=== PATIENT | male | born 1955 | race Caucasian/White ===

== ENCOUNTER 2018-07-31 22:45 | Inpatient (IN) | payer OTHER ==
[~2018-07-31] VITALS: Ht 172.7 cm; Wt 78.8 kg
[2018-07-31 23:00] VITALS: BP 123/75
[2018-08-01] VITALS: BP 107/78
[2018-08-01] MEDS ORDERED: ASPIRIN81 M2 PO (01:00)
[2018-08-01] MEDS ORDERED: LIPITOR40 MG PO (01:00)
[2018-08-01] MEDS ORDERED: WELLBUTRIN 100100 MG PO (01:02)
[2018-08-01] MEDS ORDERED: PLAVIX 75 MG TA75 M1 PO (01:03)
[2018-08-01] MEDS ORDERED: DIGOXIN125 MCG PO (01:05)
[2018-08-01] MEDS ORDERED: PEPCID20 MG PO (01:07)
[2018-08-01] MEDS ORDERED: COLACE100 MG PO (01:07)
[2018-08-01] MEDS ORDERED: FENOFIBRATE160 MG PO (01:09)
[2018-08-01] MEDS ORDERED: PROSCAR 5MG TABL5 MG PO (01:11)
[2018-08-01] MEDS ORDERED: PROZAC20 MG PO (01:20)
[2018-08-01] MEDS ORDERED: LASIX 40 MG TAB40 M2 PO (01:21)
[2018-08-01] MEDS ORDERED: KAPSPARGO SPRIN25 MG PO (01:22)
[2018-08-01] MEDS ORDERED: NITROGLYCERIN0.4 MG SUBLING (01:24)
[2018-08-01] MEDS ORDERED: POTASSIUM20 PO (01:25)
[2018-08-01] MEDS ORDERED: SPIRONOLACTONE25 MG PO (01:28)
--- NOTE | 2018-08-01 03:52 | NUR ---
Patient arrived from [facility] ED at approximately 2315 on 07/31/18 by EMS. Patient currently resides at [facility] assisted living vs independent living facility. Per ED records, patient had woke up the morning of 07/31/18 and was confused on where he was and had thoughts of harming himself. Patient reported to ED that he had been hearing voices but not clear on what the voices were telling him. Patient was transported to [facility] ED by EMS from [facility]. Per ED, patient denied SI/AH/VH/HI. Patient denied SI/HI/AH/VH upon arrival to this unit. Patient alert and oriented x4 at times. Patient started assessment pleasant and cooperative. Patient signed all admission paperwork, admitting voluntarily to unit. Patient then became confused, disoriented, frustrated and irritable. Patient concerned about the location of his phone and wallet. Patient arrived to this unit with only 1 pair pants, 1 shirt, 1 pair socks, 1 pair tennis shoes and 1 pair eyeglasses. Patient disoriented about how he got to this unit. Patient stated that he has been to 5 different locations over the last 24 hours. Patient stated that he does not live at [facility] and he has been in the hospital over the last 9 days. Patient has multiple broken teeth. Denies pain or discomfort. Able to eat without difficulty. Wears glasses when out of bed. Patient reports that he has been having difficulty with insomnia and hasn't slept for several days. Patient states that he last remembers visiting his sister on Thursday night, 07/26/18. Patient states that he is unsure what happened between then and now. Patient drug screen positive for benzodiazepines, however, none listed on medication list available. Patient denies any falls over the last 6 months. Skin assessment completed. Bruising observed to right hip, right lateral chest wall. Patient doesn't recall how he obtained bruising. Patient is prescribed Coumadin and may bruise easily. Unknown. Patient also has an open area between his 2nd and 3rd toes on his left foot. Thick odorous brown drainage observed. Wound consult placed. Denies pain. Patient has the diagnosis of CHF. 3+ pitting edema noted to bilateral lower extremities, petechia present. Pedal pulses present. Patient easily short of breath upon exertion and when laying flat. Patient appears weakened upon ambulation. Patient provided FWW and bedside commode. Orders for admission obtained from Dr. Randall. Order was obtained to collect Digoxin, PT/INR levels in the AM. Hold Coumadin until results obtained. Patient had a BM 08/01/18. Scant amount of red blood observed after BM. Patient appeared restless, difficulty sleeping, short of breath. O2 85% on RA. Head of bed elevated, encouraged him to take slow deep breaths. O2 increased to 93%. Patient reported feeling anxious. Order obtained for Ativan 0.5mg po q4 hours PRN for anxiety. Patient provided one dose and has been able to rest quietly. Patient oriented to unit upon arrival, provided snack/fluids. Benefits from 1:1 education and diversional activities when anxious.
[2018-08-01 06:32] VITALS: BP 102/77
--- NOTE | 2018-08-01 06:49 | NUR ---
Witnessed fall by MARLENY Licona. Patient alert and oriented to person with some confusion noted on time and place. Patient is occasionally able to answer correctly and other times not. No injury noted. Denies pain or discomfort. Full ROM to all extremities. Patient stood up from a chair at the table and fell to buttock. Walker next to him at time of fall. MD notified. No new orders obtained. No next of kin listed or reported from patient therefore, unable to contact.
[2018-08-01 07:30] VITALS: BP 100/78
[2018-08-01 07:47] VITALS: BP 100/78
[2018-08-01 08:10] LABS: INR 2.9; PROTIME 30.4 Seconds (9.3-11.4)
--- NOTE | 2018-08-01 13:12 | NUR ---
DYSPHORIC MOOD THIS AM-ABRUPT VERBAL RESPONSES AND SARCASTIC AT TIMES WHEN ASKED TO ALLOW STAFF TO ASSIST WITH AMBULATION D/T FALL EARLIER THIS AM STATING "WELL I WILL JUST NEVER GET OUT OF MY BED IS THAT OK" REPORTS FEELING PERSECUTED BY STAFF STATING "I AM THE ONLY ONE THAT HAS THAT BED ALARM THING NO ONE ELSE DOES" GLARING At NURSING STAFF ANGRY TENSE FACIAL EXPRESSION WHEN STATING THIS ATIVAN 0.5MG GIVEN PO PRN FOR AGITATION AT 0812 AND REPEATED AT 1215 -AT 1215 OBSERVED TO BE RESTLESS,GETTING UP AND DOWN FROM TABLE STATING "I JUST WANT TO GO SIT IN MY ROOM LIKE EVERYONE ELSE-WHEN ASSISTED TO ROOOM REFUSED TO GET IN BED STATING HE WANTED TO SIT IN CHAIR AND WANTED DOOR CLOSED THIGHTLY-BECAME UPSET WHEN INFORMED I WOULD BE UNABLE TO DO THAT D/T HIS FALL EARLIER THIS AM,IMPULSIVE BEHAVIOR,UNSTEDAY GAIT. IS ORIENTED TO NAME ONLY-GAIT UNSTEADY AT TIMES DESPITE USE OF ROLLER WALKER D/T ABRUPT TURNS,SITTING TO QUICKLY,EXCESSIVLEY FAST GAIT-RESISITVE WITH REDIRECT,
--- NOTE | 2018-08-01 15:33 | NUR ---
LALY received a report that this pt was at [facility] [phone] from July 12 to July 21. He threatened to " slice open his throat" and was sent to [facility]. After sepaking with a nurse from [facility] this AM , Sw understood that he does not have a bed hold at [facility] although they still have his personal belongings. he has a friend avtar sanchez [phone] and his sister sterling [phone]. Sw called and left a VM with his sister. [facility] admissions [phone]
--- NOTE | 2018-08-01 16:22 | NUR ---
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 VS P-77 R-16. DENIES HITTING HEAD-DENIES DIZZINESS BLURRED VISION. NO NOTED LACERATIONS,NEW BRUISES OR SKIN TEARS UPON FULL SKIN INSPECTION AT APPROX. 1615 WHEN TAKEN TO BATHROOM -MD ON UNIT AT TIME OF FALL-ORDERS RECEIVED-CHAIR EXIT ALARM INITIATED WHILE SITTING IN DAYROOM-PT REMAINS RESISITIVE WITH ATTEMPTS TO ALLOW STAFF TO ASSSIT IN CARES AND AMBULATION INSISTING THAT HE CAN DO IT ALONE-WHEN REMINDED OF 2 FALLS IN LAST 24 HOURS STATES "THAT WAS JUST BAD LUCK" WHEN INFORMED IT WAS POLICY TO CALL FAMILY AFTER FALL TO LET THEM KNOW PT STATES "I DON'T WANT MY SISTER CALLED" NURSING TRAVEL CONSULTANT NOTIFIED-REMAINS ON FALLS PRECAUTION
[2018-08-01 19:31] VITALS: BP 110/79
[2018-08-01 20:31] VITALS: BP 116/72
--- NOTE | 2018-08-01 23:50 | NUR ---
ASSUMED CARE OF THE PT AT 1915. ALERT ET CONFUSED THIS PM. THE PT BECAME ANGRY EARLIER IN THE SHIFT. STAFF CALLED THE PHYSICIAN TUGBOAT CAPTAIN WHO ORDERED ZYPREXA 5MG TO BE GIVEN IM, WHICH WAS GIVEN ORDERED AFTER TAKING THE PT BACK TO HIS ROOM WITH SECURITY PRESENT. THE PT BECOMES SOB WITH EXERTION. THE HEAD TO HIS BED WAS RAISED AND HE SEEMED TO BREATHE EASIER AT THIS TIME.
--- NOTE | 2018-08-02 02:20 | NUR ---
At 1930, patient chair alarm sounded in day room. Staff responded x2. Patient attempting to ambulate. One staff stayed with patient and provided FWW. Another staff went to get gait belt. Patient kept ambulating without using walker, running into it. Staff attempted to hold patient arm to steady him. Patient become upset. Staff attempted to provide chair for patient to sit down. Patient became more upset. Patient then hit staff with elbow and took stethoscope. Patient lost balance and fell to buttock. Patient then layed himself on the floor, holding stethoscope, cursing at staff and laughing at the same time. Staff attempted to assist resident sit up in which he became more angry and physically aggressive. Security notified. notified. explosive operator supervisor notified. Resident assisted to stand and sat in w/c with staff assist x3, including security alarm installer. While staff propelled w/c to patient room, patient took off his glasses and started to twist the frames, ultimately breaking his glasses. Patient then started giggling, looked up at security alarm installer and asked "why did you just break my glasses?" Patient assisted to bed with staff assist x3.
--- NOTE | 2018-08-02 03:22 | NUR ---
EARLIER IN THE SHIFT, THE PT WAS ASSISTED BACK TO HIS ROOM WITH THE ASSISTANCE OF SECURITY. THIS NURSE CALLED THE PHYSICIAN SALES ADVISORY MANAGER AND RECEIVED AN ORDER FOR ZYPREXA 5 MG IM WHICH WAS GIVEN ORDERED. THE PT IS AN 1:1 WHILE AWAKE. THIS NURSE STAYED WITH THE PT. HE KEPT TRYING TO GET OUT OF THE BED, ASSISTED TO THE CHAIR. HE KEPT MOVING AROUND THE ROOM WALKING A FEW STEPS AND THEN GETTING SOA. STAFF CALLED THE PHYSICIAN SALES ADVISORY MANAGER AND RECEIVED ANOTHER ORDER FOR ZYPREXA 5MG WHICH WAS GIVEN IM PER ORDER. VITAL SIGNS WERE TAKEN. THE PT WAS PLACED ON 02 WHEN HIS 02 SAT WAS TAKEN IT WAS 85% ON ROOM AIR. HE WAS PUT ON 2L PER NC. THE PT IS SLEEPING ON HIS LEFT SIDE AT THIS TIME.
[2018-08-02 07:30] VITALS: BP 104/72
--- NOTE | 2018-08-02 07:45 | EKG ---
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: Michael SINGH : 1955 Requested By: Polo Randall Order Number: [id number] MD: Juliocesar Navarro Measurements Intervals Jarreau Rate: 75 P: [place]: QRS: 99 QRSD: 165 T: -28 QT: 418 QTc: 467 Interpretive Statements Atrial fibrillation RBBB and LPFB No previous ECG available for comparison Electronically Signed On 08-02-2018 7:45:19 CDT by Juliocesar Navarro [email or web address] ��������������������������������������������� <ELECTRONICALLY SIGNED> ���������������������������������������� By: Juliocesar Navarro MD, [facility] ��������������������������������������������� 08/02/18 0745 1613 1613 Juliocesar Navarro MD, FACC /EPI
[2018-08-02 08:00] VITALS: BP 104/72
--- NOTE | 2018-08-02 09:30 | NUR ---
PT CONCERNED ABOUT HIS GLASSES. PT STATED HE DOENS'T HAVE THEM THIS AM. PT DENIES ANY PAIN. PT HAS SOME SWELLING TO RT FOOT. PT COOROPERATIVE WITH TAKING MEDS TODAY. PT ATTENDING GROUP IN W/C. PT CLOSES EYES PERIODICALLY.
--- NOTE | 2018-08-02 10:48 | NUR ---
WOUND CONSULT; ASSESSMENT IDENTIFIED A WOUND BETWEEN THE 2ND/3RD TOES OF THE LEFT FOOT WITH A LIKELY ETIOLOGY OF FUNGAL. A SCANT AMOUT OF DRAINAGE SANGINOUS, NON ODOROUS AND TENDER. RECOMMENDATIONS; CLEANSE WITH NORMAL SALINE DAILY, APPLY AQUACEL AG TO WOUND, SECURE WITH KERLIX AND TAPE, CHANGE DAILY/PRN DISCUSSED WITH MARLENY
[2018-08-02 11:48] LABS: HEMATOCRIT 41.1 % (42.0-52.0); MCH 26.4 pg (26.0-34.0); MCHC 31.6 g/dL (28.0-37.0); MCV 83.8 fL (80.0-100.0); PLATELET COUNT 234 thou/uL (150-400); RDW 18.5 % (10.5-14.5)
[2018-08-02 11:58] LABS: PROTIME 20.8 Seconds (9.3-11.4)
[2018-08-02 12:05] LABS: CALCIUM 9.6 mg/dL (8.5-10.1)
[2018-08-02 12:23] LABS: ABSOLUTE NEUTROPHILS 2.9 thou/uL (1.4-8.2); ANISOCYTOSIS 2+; PLATELET ESTIMATE NORMAL; POLYCHROMASIA 1+
[2018-08-02 19:53] VITALS: BP 106/78
--- NOTE | 2018-08-03 03:48 | NUR ---
ASSUMED CARE @ 19:00. UP IN W/C IN DAY ROOM. A&O X 3, FALL RISK, IMPULSIVE. DENIES SI AND HI. STATES IS NOT DEPRESSED OR ANXIOUS. TOOK HS MEDS WHOLE WITH WATER. WILL MONITOR Q 12 MINUTES FOR PATIENT SAFETY.
[2018-08-03 08:30] VITALS: BP 108/76
[2018-08-03 08:54] VITALS: BP 108/76
--- NOTE | 2018-08-03 18:12 | NUR ---
ASSUMED CARE OF PATIENT AT 0715, REPORT RECEIVED FROM [facility]. PATIENT ALERT WITH CONFUSION, CAN BE IMPULSIVE. PATIENT ON FALL PRECAUTIONS, FELL ON THURSDAY, FALL RISK. VSS. NO C/O PAIN THIS SHIFT. PATIENT CAN BE PARONOID, ASKING ABOUT HIS HOME MEDS, WHICH THIS RN ASSURED HIM HE IS GETTING EVERYTHING ORDERED, HE CALMED DOEN AND WENT TO THE DINING AREA. PATIENT HAS BEEN CALM ALL THE SHIFT. WOUND CARE DONE TO HIS LEFT FOOT, AND LEFT ELBOW. PATIENT IS HIV+. NEW ORDER FOR DR MARTIN FOR SEVERE CMP, AND MED ADJUSTMENT. PATIENT IS CONT. OF BOWEL AND BLADDER. WILL CONTINUE TO MONITOR AND KEEP SAFE.
[2018-08-03 19:33] VITALS: BP 101/73
--- NOTE | 2018-08-03 22:34 | H ---
[facility] [place] [address] HISTORY AND PHYSICAL Name: WAYNE WRIGHT Room #: 526B-B ADM IN M.R.#: [id number] Admission: 07/31/18 ������������������ Attend Phys: Polo Randall DO Discharge: ������������������ Date of : 51 Report #: [id number] THIS REPORT FOR: //name// CC: Polo Randall [facility] DATE OF SERVICE: 08/01/2018 ATTENDING PHYSICIAN: Polo Randall DO DIVING INSTRUCTOR: Lucia Calixto MD REASON FOR ADMISSION: Reported suicidal ideation with plan to cut himself or stab himself. Of note, the patient has had a very complicated recent course and multiple phone calls were made to piece together his comings and brissa over the last month. HISTORY OF PRESENT ILLNESS: This is a 63-year-old male transferred from the [facility] Emergency Room. He had been sent there, it turns out, by the [facility] for complaining of suicidal ideation with intent to harm himself yesterday. This was a new phenomenon for the patient as he has not previously been suicidal. With great difficulty, I was able to piece together the patient had been in independent living at [facility], had been sent to [facility] Emergency Room on 07/12/2018, was hospitalized there from 07/12/2018 through 07/21/2018. Apparently, he was brought there for shortness of breath, dizziness. He was found to have a very low ejection fraction in the 10% range. I am not clear of all the interventions done at the [facility], was then sent to the rehabilitation facility, so he actually has not been back to his residence at [facility] since 07/12/2018. The Emergency Room evaluation stated that the patient has a history of episodic mood disorder and lived in a nursing facility. It turns out that that is not entirely true as he was in an independent living and then only in rehabilitation facility. When he was seen in the ER, he denied suicidal thoughts and he denied having a plan. The patient stated he does have a history of hearing voices, but they do not give him specific instructions. Apparently, the suicidal ideation started around 1200 hours on Thursday and when he was evaluated, these ideations had gone away. PAST MEDICAL HISTORY: Includes atrial fibrillation, chronic hepatitis C virus infection, chronic kidney disease, congestive heart failure, coronary artery disease involving mashpee coronary artery of mashpee heart, elevated liver enzymes, episodic mood disorder, history of SC in 2006, human immunodeficiency virus diagnosed greater than 35 years ago, implantable cardioverter defibrillator, he has a Medtronic Protecta XT DR; ischemic cardiomyopathy, long-term use of anticoagulant therapy, hyperlipidemia, myocardial infarction, [facility] [address] [place] [address] HISTORY AND PHYSICAL Name: WAYNE WRIGHT Room #: 526B-B ADM IN M.R.#: [id number] Admission: 07/31/18 ������������������ Attend Phys: Polo Randall DO Discharge: ������������������ Date of : 51 Report #: [id number] permanent atrial fibrillation. PAST SURGICAL HISTORY: Cardiac catheterization, left main, stents present from proximal to mid segment with diffuse ISR; cardiac defibrillator placement in 06/2011, he had a colonoscopy in 01/2017. Also, has had herniorrhaphy. FAMILY HISTORY: Breast cancer in mother, hypertension in mother, hyperlipidemia in mother, hypertension in father, cancer in father, hyperlipidemia in father. SOCIAL HISTORY: Former smoker. He has a history of 40-pack years, quit 05/21/2007. Alcohol use, 3.6 ounces per week. Denies smokeless tobacco. REVIEW OF SYSTEMS: From [facility] Emergency Room: CONSTITUTIONAL: Negative for chills, diaphoresis and fever. HEENT: Negative for congestion, sinus pressure, sore throat, trouble swallowing and voice change. EYES: Negative for eye pain and redness. RESPIRATORY: Negative for cough, chest tightness, shortness of breath and wheezing. GASTROINTESTINAL: Negative for abdominal pain, blood in stool, constipation, diarrhea, nausea and vomiting. ENDOCRINE: Negative for polyuria. GENITOURINARY: Negative for dysuria, flank pain and hematuria. NEUROLOGIC: Negative for dizziness, syncope, lightheadedness, and numbness. HEMATOLOGY: Negative for adenopathy. PSYCHIATRIC: Symptoms at the present time are negative. Otherwise, 10-point review of systems was negative. PHYSICAL EXAMINATION: The patient had a grossly normal physical exam. He did have some wounds on his feet and ankles that were photographed. LABORATORY DATA: Urinalysis was negative. Toxicology screen was negative except for benzodiazepines. On a CBC, White count 4.80, H and H 13.3 and 43, platelet count 275, lymphocyte count was low at 0.71. CMP showed sodium 139, potassium 4.7, chloride 100, bicarbonate 29, anion gap 10, calcium 9.8, glucose 85, serum total protein 6.6, albumin 3.6, alkaline phosphatase 51, ALT 54, AST 46, total bilirubin 1.4, blood urea nitrogen 39, creatinine 1.6, GFR for non- male 44. Apparently, from speaking with his sister, there was a diagnosis of mild dementia even before the patient left [place] 5 years ago to move here, but that was considered very mild and he was able to function. The [facility] Mental Status Examination was administered, the patient scored a 9/30, gross deficits in delayed memory, working memory, acute memory, remained with deficits in attention, orientation. Executive function was also grossly impaired. He could not draw a clock correctly, duplicated hands and failed to [facility] [address] [place] [address] HISTORY AND PHYSICAL Name: WAYNE WRIGHT Room #: 526B-B [facility] IN ..#: [id number] Admission: 07/31/18 ������������������ Attend Phys: Polo Randall DO Discharge: ������������������ Date of : 51 Report #: [id number] put the hour and minute hands in. Geriatric depression scale short form was administered. He was only 4 positives. I do not find him to be clinically depressed. Physical exam is showing relatively poor safety awareness, using a rolling walker. He is min assist. MENTAL STATUS EXAMINATION: This is a well-developed, disheveled male, appearing older than stated age. Attention limited. Concentration limited. Speech soft, normal rate. Thought process is linear and goal directed. Thought content, focused on his bed alarm. Some psychomotor retardation, no psychomotor agitation. Endorsed intermittent auditory hallucinations, none presently. Denied visual or tactile hallucinations. Memory grossly impaired. Insight impaired. Judgment impaired. Fund of knowledge well below average. Mood and affect were congruent, euthymic, fair range. 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 The patient has had recent significant decline in function over the last 3 weeks with a history of dementia going back 5 years. Also, I neglected to mention home medications: Aspirin 81 mg p.o. daily, continue that; atorvastatin 40 mg p.o. at bedtime, continue that; Wellbutrin 150 mg XL, continue that; Plavix 75 mg p.o. daily, continue that; digoxin 125 mcg daily, do not continue that as his INR ____ back, did result 2.9, Hospitalist is now managing; docusate ordered at 100 mg b.i.d.; famotidine 20 mg daily; fenofibrate 160 mg p.o. daily; Proscar 5 mg p.o. daily; fluoxetine 20 mg p.o. daily; Lasix 40 mg p.o. daily; Genvoya, it was not known this was a HAART drug last night that was ordered today by Dr. Calixto; metoprolol succinate 25 mg daily, hold if heart rate less than 60; nitroglycerin 0.4 mg tablets q.5 minutes x 3 p.r.n.; potassium chloride 20 mEq p.o. daily; spironolactone 25 mg p.o. daily, hold for SBP less than 100. His Coumadin dose had been 2.5 mg prior to admission. We will go ahead and obtain a 12-lead EKG. The patient is in a behavioral problem at this point. I would like to get more of his medical history before I would consider adding further psychiatric medication targets. Time spent on interview, review of records, coordination of care, discussion with nursing staff, Dr. Calixto, phone calls to 2 nursing homes, 1 hospital as well as to the sister, exceeded 100 minutes today. strength: insured [facility]: multiple diseases, long hx of hiv ��������������������������������������������� <ELECTRONICALLY SIGNED> ���������������������������������������� By: Polo Randall, ��������������������������������������������� 08/03/18 [id number] Polo Randall, DO /nt
--- NOTE | 2018-08-04 03:16 | NUR ---
ASSUMED CARE @ 1900, UP IN DAY ROOM. C/O HAVING LOST HIS GLASSES, SHOWN A PAIR THAT IS IN OUR LOST AND FOUND, AND HE DENIES THAT THOSE GLASSES ARE HIS. A&O X 2-3. DENIES SI, HI, REPORTS THAT HAS WORRY AND ANXIETY ABOUT BEING STUCK HERE AND NOT ALLOWED COMMUNICATION WITH OUTSIDE. TELEPHONE PRIVILEDGES EXPLAINED, AND PT DENIES WANTING TO MAKE A PHONE CALL AT THIS TIME, BUT SAYS THAT HE WILL MAKE ONE TOMORROW. MEDICATIONS TAKEN WHOLE WITH WATER. WILL CONTINUE TO MONITOR Q 12 MINUTES FOR PATIENT SAFETY.
--- NOTE | 2018-08-04 06:11 | NUR ---
SLEPT 9 HOURS OVERNIGHT.
[2018-08-04 06:35] LABS: CALCIUM 8.6 mg/dL (8.5-10.1); CREATININE 1.8 mg/dL (0.7-1.3); POTASSIUM 3.8 mmol/L (3.5-5.1)
[2018-08-04 09:29] VITALS: BP 114/83
--- NOTE | 2018-08-04 15:08 | NUR ---
REFUSED TO GET UP FOR BREAKFAST. AWOKE AND TOOK AM MEDS WITHOUT DIFFICULTY. ATTENDED GROUP THERAPY WITH FAIR PARTICIPATION. GOOD APPETITE. DENIES PAIN.
--- NOTE | 2018-08-04 17:36 | NUR ---
ALERT ORIENTED TO NAME AND PLACE. PLESANT USES WHEELCHAIR FOR MOBILITY TO DINING ROOM AND GROUPS. GOOD APPETITE. PARTCIPATED WITH GROUP ACTIVITY. VERY QUIET TODAY. AMBULATED WITH PT WITH SLOW STEADY GAIT. DENIES PAIN.
[2018-08-04 17:38] VITALS: BP 114/83
[2018-08-04 19:37] VITALS: BP 101/77
--- NOTE | 2018-08-05 03:07 | NUR ---
NURSES NOTE - WAYNE IS ALERT AND ORIENTED X4, HE IS CALM AND COOPERATIVE WITH STAFF AND OTHER PATIENTS. HE REPORTS ATTENDING GROUPS AND PARTICIPATING WELL. HE DENIES FEELINGS OF DEPRESSION, BUT REPORTS ONGOING ANXIETY REGARDING HIS HIV FOLLOW UP APPOINTMENTS AND WHEN HIS DISCHARGE DATE WILL BE. THIS NURSE ENCOURAGED HIM TO ASK SOCIAL WORK AND DR. LÓPEZ FOR MORE INFORMATION INTO THE MATTER BUT REASSURED HIM STAFF WOULD CONTINUE TO FACILITATE HELP IN THIS MATTER. HE APPEARS WITH AN APPROPRIATE AFFECT, VOICE IS GOAL DIRECTED AND LINEAR IN SPEECH. HE DENIES SI HI AND DOES NOT EXHIBIT ANY S/S OF HALLUCINATIONS. NURSING WILL MAINTAIN ALL PRECAUTIONS TO ENSURE SAFETY AT ALL TIMES.
[2018-08-05 07:30] VITALS: BP 100/77
[2018-08-05 08:00] VITALS: BP 100/77
--- NOTE | 2018-08-05 08:52 | HC ---
[facility] [place] [address] CONSULTATION Name: WAYNE WRIGHT Room #: 526B-B ADM IN M.R.#: [id number] Admission: 07/31/18 ������������������ Attend Phys: Polo Randall DO Discharge: ������������������ Date of : 51 Report #: [id number] THIS REPORT FOR: //name// CC: Polo Beckman CONSULTATION REQUESTED BY: Polo Randall DO REASON FOR CONSULTATION: HIV infection. HISTORY OF PRESENT ILLNESS: The patient is a 63-year-old white man admitted to the psychiatric unit with history of suicidal ideation. The patient is unable to give me any information whatsoever. Consequently, all information is gathered from review of records. PAST MEDICAL HISTORY: Chronic atrial fibrillation. Hepatitis C virus infection. HIV infection for some 35 years on treatment with Genvoya, which by the way is unavailable here at the hospital. Coronary artery disease. Status post implantation of a cardioverter defibrillator. Ischemic cardiomyopathy. Dyslipidemia. Previous myocardial infarction. Coronary artery stenting. Previous defibrillation. Herniorrhaphy. FAMILY HISTORY: See H and P. SOCIAL HISTORY: See H and P. REVIEW OF SYSTEMS: Unable to obtain. See H and P. PHYSICAL EXAMINATION: GENERAL: A deeply demented white man, unable to give any information whatsoever. VITAL SIGNS: Presenting following vital signs: Temperature 98.3, pulse 75, respirations 16 and BP 100/78. HEENMT: Within range. No thrush. Hairy leukoplakia. NECK: Supple, no thyromegaly. LUNGS: Clear. HEART: S1, S2. No gallop. ABDOMEN: Soft, no masses or megaly. GENITALIA AND RECTAL: Deferred. EXTREMITIES: No clubbing or cyanosis. LABORATORY DATA: Sodium 143, potassium 4, BUN 38 and creatinine 2. Protime 20.8. WBC 4000, hemoglobin 13 g/dL and platelets 234,000. DRUG ALLERGIES: None listed. MEDICATIONS: The patient is on oxcarbazepine, fenofibrate, atorvastatin, [facility] [address] [place] [address] CONSULTATION Name: WRIGHTWAYNE Hanane Room #: 526B-B [facility] IN ..#: [id number] Admission: 07/31/18 ������������������ Attend Phys: Polo Randall DO Discharge: ������������������ Date of : 51 Report #: [id number] metoprolol, furosemide, fluoxetine, finasteride, docusate, digoxin, clopidogrel bisulfate, famotidine, nitroglycerin and obviously he is not getting his antiretroviral medication. ASSESSMENT: 1. Human immunodeficiency virus infection, undetermined stage. 2. History of hepatitis C virus infection. 3. Dementia. 4. Chronic kidney disease. 5. Ischemic cardiomyopathy, status post defibrillator. SUGGESTIONS: In view of renal dysfunction, I much rather the patient does not take tenofovir alafenamide containing medications. We will obtain an HLA-[id number]. If this is negative, then Triumeq combination of abacavir 600 mg, dolutegravir 50 mg and lamivudine 300 mg once a day may be the drug of choice for him. The issue of hepatitis C infection is to be addressed on an outpatient basis. Dr. Randall, thank you for requesting my suggestions in the care of your patient. ��������������������������������������������� <ELECTRONICALLY SIGNED> ���������������������������������������� By: Sidney Dela Cruz MD ��������������������������������������������� 08/05/18 [id number] Sidney Dela Cruz MD /nt
--- NOTE | 2018-08-05 09:00 | NUR ---
PT SLEEPING OUT IN DAYROOM. PT LUNGS CLEAR. HEARD MURMUR TO HEART. PT HAS ROUND STOMACH. PT UP WITH WALKER. STEADY GAIT AT THIS TIME. PT STILL NEEDING TO FIND GLASSES.
[2018-08-05 10:13] VITALS: BP 139/82
--- NOTE | 2018-08-05 13:00 | NUR ---
FOUND PT GLASSES IN NURSING DESK DRAWER. PT HAD BROKE HIS OWN GLASSES BY TWISITING THEM WHEN HE ADMITTED. GAVE HIS GLASSES TO FAMILY THAT CAME FOR A MEETING.
--- NOTE | 2018-08-05 14:48 | NUR ---
PT UP TO BATHROOM VIA WALKER. PT VOIDED IN BATHROOM WITH STAND-BY ASSIST.
--- NOTE | 2018-08-05 16:02 | NUR ---
LALY, and Dr. Randall met with pt sister Kenyatta concerning pt diagnosis. Dr. Randall diagnosed the pt with Major Neurocognitive Disorder. Dr. Randall reccommended the pt for [place]. LALY will follow-up with Willard Lin to see if [place] will be able to move from [place].
--- NOTE | 2018-08-05 17:07 | NUR ---
PSYCHOSOCIAL ASSESSMENT Diagnosis: PSYCHOSIS, MDD Admit Date: 07/31/18 Psychiatrist: MARIBEL Symptoms associated with current admission: Anxiety/panic Depressed mood Hallucinations Violence/aggression Presenting problems: Pt was agitated with staff, and combatative. Precipitating Factors: Non-compliance psychothx Comments: History of High Risk Behavors: Hx violence/aggression Suicide Risk Factors: D A-Signs of alcohol/substance abuse w/ suicide ideation B-Recent suicidal thoughts or attempts C-Recent thoughts or attempts of harming someone else D-Altered mental status due to psychiatric/chem dep etiology E-The behavior exists - add comment PSYCHIATRIC HISTORY Age of onset: 63 Prior hospitalizations: 1-2 times hospitalized Hospital names and dates, if available: [facility] in [place] Most Recent Outpatient HX: Counselor/Case Management Additional information: Legal Status: DPOA Guardian/Conservatorship type: DPOA Contact name: Skyla Whitaker Contact phone: [phone] Other: Name: Phone: Other legal issues: (Arrests/convictions Current Status) None P.O. Name and Phone #: FAMILY HISTORY Place of : [place] Raised in: [place] # Siblings & order: Pt has two sibilings, eldest Describe relationships within family of origin: Pt was not close to his sibilings until 5 years ago. Any psychiatric or substance abuse problems within family of origin: Y Has patient been sexually or physically abused, neglected or been taken advantage of financially? N Has the abuse been reported? N Other pertinent family information: Marital history/significant relationships: Domestic violence: N Children ages & who is caring for them: Pt does not have any children. Is child welfare involved? N Drug history: Pt has Hx of drugs and alcohol. Alcohol Use: Frequency: Quantity: Have you ever felt you ought to Cut down on drinking? Have people Annoyed you by criticizing your drinking? Have you ever felt bad or Guilty about your drinking? 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 AXIS SCREENING TOOL Tilden I Mood Disorders: Depression Tilden II Personality/Mental Retardation: Tilden III Medical Impairment: Alzheimer's HTN Hyperlipidemia Other CHF Tilden IV Problem(s) with: Health care services Primary support group Tilden V: 40-Major impairment Additional Tilden comments: PERSONAL BACKGROUND Relevant cultural issues (ethnicity, values, beliefs, spiritual): Non spiritual Zoroastrianism: Importance of voodoo to patient: Unmet spiritual needs What hobbies/interests does the patient have? Fishing dancing [place] Sexual orientation (relevant impact to current treatment): Homosexual : Where did you serve: Branch of service: Rank: Discharge status: Are you a combat ? Occupational/Work: Do you work? N Do you want to work? N How many hours do you work/week? 0 How many jobs have you had in the past 5 years? 0 Do you need assistance finding a job? N Does the patient need assistance in job training? N Source of income: SSI Other Does patient have a Payee? N Payee name: Approximate monthly income: [phone] Does patient have adequate funds for next 30 days? Y Education background: Bachelor degree Highest grade completed: 12th grade Other Educational/training programs: Functional deficits: Yes, see explain Explain functional deficits: Attention/Concentration Memory Orientation/Thought Organization Impulse Control Frustration Tolerance Current living situation: Facility (B&C, SNF,ILF) Address/phone where pt. is living: [facility] Does the patient plan to continue there after DC? Yes Patient lives with: Unrelated adult Will family/significant other be involved in treatment? Other community support services utilized: Pt will need [place] and memory care setting Support System Available (family/friend) Name: Skyla Whitaker Relationship: Sister Name: Keri Tobias Relationship: Sister Name: Phone: Relationship: Patient strengths: Family support Motivated Insight Community support Education Patient's assets: Verbal Positive support system Patient's weaknesses: Poor social skills Poor social skills Chronic hx mental illness Health problems Additional weaknesses: Pt has been battling with mental and physical health for several years. Patient's perception of current social media executive/case management needs: Pt stated a CM is someone who listen to there problems. PRELIMINARY DISCHARGE PLAN Discharge plan/Community resource contacts: Pt will d/c [place]. Discharge needs: Pt will need to be transported to [place]. Problems anticipated on discharge: Compliance w/ med regimen Comments: (factors affecting DC plan/pt. response/interventions) SW will send a referral to [place].
--- NOTE | 2018-08-06 01:51 | NUR ---
ASSUMED CARE @ 1900, SITTING IN DAY ROOM, IN A CHAIR AT THE TABLE, INTERACTING WITH PEERS. ATE EVENING SNACKS, TOOK HS MEDS WHOLE WITH WATER. DENIES HI AND SI. REPORTS DEPRESSION, WHICH HE REPORTS IS RELATED TO NOT WANTING TO BE HERE. LOW B/P NOTED, RETAKEN MANUALLY: L ARM 90/50 AND R ARM 80/40. PT REPORTS THAT IS IS ALWAYS LOW AND THAT HE ONLY HAS A PROBLEM WHEN IT GETS BELOW 80 SYSTOLIC. WILL CONTINUE TO MONITOR Q 12 MIN FOR PATIENT SAFETY.
[2018-08-06 03:56] VITALS: BP 139/82
--- NOTE | 2018-08-06 06:20 | NUR ---
SLEPT WELL FOR A TOTAL OF 7.6 HOURS.
[2018-08-06 07:40] VITALS: BP 142/69
--- NOTE | 2018-08-06 10:14 | NUR ---
WOUND CARE FOLLOW UP; THE BILATERAL AREAS BETWEEN THE TOES ARE MUCH IMPROVED. THE PATIENT WAS COOPERATIVE TODAY. FLIGHT OF IDEAS NOTED IN THE CONVERSATION WELL PARANOIA. CONTINUE THE CURRENT POC DISCUSSED WITH MARLENY
--- NOTE | 2018-08-06 10:50 | NUR ---
[id number]: Report rec from noc shift, care assumed. Ambulatory in halls and to DR, gait steady/slow, close monitoring with mobility educated with staff. Feeds self, appetite good, consumed 100% of meal. Takes meds whole with out difficulty, tolerates well. Wound care nurse here to assess pts Lt toe amputation sites, dsg change complete.
--- NOTE | 2018-08-06 17:26 | NUR ---
LALY called [facility] and spoke with Jessica [phone] who requested information that was needed to determind if this pt would be able to live in [place] . LALY faxed this to them [phone]. LALY also called [facility] [phone] and faxed a referral to them too [phone].
[2018-08-06 19:33] VITALS: BP 89/67
--- NOTE | 2018-08-06 20:40 | NUR ---
ASSUMED CARE @ 1900, SITTING IN CHAIR IN THE DAY ROOM AT A TABLE. ASSESSMENT COMPLETE DENIES HI, SI AND DEPRESSION, ANXIETY. PLEASANT AFFECT UPON CONVERSATIONAL ASSESSMENT/ REPORTS BM TODAY. HRRR, LUNGS CTA, ABD NORMOACTIVE. REPORTS GOOD APPETITE, SAYS HE ATE EVERYTING THAT WAS GOOD ON HIS TRAY.
--- NOTE | 2018-08-07 01:43 | NUR ---
SLEEPING SOUNDLY, EYES CLOSED RESPIRATIONS EVEN AND UNLABORED. WILL CONTINUE TO MONITOR Q12 MINUTE ROUNDS.
[2018-08-07 01:45] VITALS: BP 89/67
[2018-08-07 07:30] VITALS: BP 108/77
--- NOTE | 2018-08-07 08:35 | NUR ---
PT SITTING IN DINNING ROOM THIS AM. PT LUNGS CLEAR. PT NOT USING WALKER AT THIS TIME. PT STATED HE DOESN'T NEED IT NOW. PT REST WITH EYE CLOSED IN DINNING ROOM AT PERIODS.
[2018-08-07 10:12] LABS: CALCIUM 9.7 mg/dL (8.5-10.1); CREATININE 1.9 mg/dL (0.7-1.3); POTASSIUM 3.4 mmol/L (3.5-5.1)
[2018-08-07 10:13] LABS: INR 1.4; PROTIME 14.4 Seconds (9.3-11.4)
[2018-08-07 14:20] VITALS: BP 108/77
--- NOTE | 2018-08-07 17:23 | NUR ---
PT HAS BEEN TOLERATING ACTIVITY WITHOUT WALKER TODAY. PT STATED HE IS ENJOYING WATCHING OTHER INDIVIDUALS, STATED HE STILL IS UNABLE TO SEE WELL WITHOUT HIS GLASSES.
[2018-08-07 20:05] VITALS: BP 102/72
[2018-08-07 22:25] VITALS: BP 102/72
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
--- NOTE | 2018-08-08 04:37 | NUR ---
PATIENT BACK UP AND IN DAY ROOM. STATES HE'S UNABLE TO SLEEP. PATIENT STILL TRYING TO RATIONALIZE HOW AND WHY HE IS HERE. HE STATES THAT HE THINKS HE MUST'VE BEEN GIVEN AN INJECTION BY A PSYCH MED THAT IS SHOWN IN RESEARCH TO CAUSE THE BEHAVIORS HE CAME IN WITH BECAUSE THE COMBATIVENESS AND PSYCHOSIS IS NOT HIM HE STATES. HE CAN'T THINK OF THE PSYCH MED BUT STATES HE THINKS HE HAD 2 DOSES SOMEWHERE BEFORE HE CAME TO US. PT IS RELAXED AND CALM AT THIS TIME.
[2018-08-08 08:00] VITALS: BP 100/73
[2018-08-08 09:00] VITALS: BP 100/73
--- NOTE | 2018-08-08 09:00 | NUR ---
PT UP THIS AM. PT DENIES ANY PAIN. PT JOKING WITH NURSE THIS AM. LUNGS CLEAR, NO COUGH. PT TOLERATING DIET AND TAKING AM MEDS WITHOUT ISSUES. PT HAS STEADY GAIT.
--- NOTE | 2018-08-08 10:25 | NUR ---
ADM KDUR 40MEQ PO X1 PRE ORDER. PT TOOK WITH YUE.
--- NOTE | 2018-08-08 12:09 | NUR ---
LALY met with Marifer López from [facility]. Marifer informed she intervired Rikki today and will go back to her office to review records sent over. Marifer was interested in the discharge date for this Pt. LALY gave Marifer contact information for [facility]rum in order to assist with diacharge on the PT.
--- NOTE | 2018-08-08 17:38 | NUR ---
PT STATED HE IS HAVING TROUBLE SLEEPING AT NIGHT DUE TO ROOMMATE TALKING. PT STATED HE WANTED A GOOD NIGHT SLEEP.
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
[2018-08-08 23:27] VITALS: BP 100/73; BP 100/76
[2018-08-09 06:18] LABS: HEMATOCRIT 40.3 % (42.0-52.0); HEMOGLOBIN 12.5 gm/dL (14.0-18.0); MCH 25.8 pg (26.0-34.0); MCHC 31.1 g/dL (28.0-37.0); RBC 4.86 mil/uL (4.50-6.00); RDW 18.9 % (10.5-14.5); WBC 4.8 thou/uL (4.0-11.0)
[2018-08-09 06:35] LABS: ALBUMIN 3.4 g/dL (3.4-5.0); CALCIUM 9.6 mg/dL (8.5-10.1); CREATININE 1.7 mg/dL (0.7-1.3); POTASSIUM 4.1 mmol/L (3.5-5.1); TOTAL PROTEIN 7.2 g/dL (6.4-8.2)
[2018-08-09 07:00] VITALS: BP 110/70
--- NOTE | 2018-08-09 16:14 | NUR ---
LALY followed up with Marifer Wilkins at [facility] concerning pt being moved to [place]. Marifer mention that she is looking over the nursing notes, and will follow-up with LALY on August 10, 2018.
--- NOTE | 2018-08-09 16:23 | NUR ---
PATIENT ALERT AND ORIENTED AND COOPERATIVE WITH TREATMENT PLAN AND PARTICIPATES IN THERAPY. PATIENT INTERACTS WITH OTHER PATIENTS APPROPRIATELY AMD CAN BE FOUND READING THE PAPER IN THE DINING ROOM. PATIENT UP AD ROBERT.
[2018-08-09 20:03] VITALS: BP 105/78
--- NOTE | 2018-08-09 23:48 | NUR ---
NURSES NOTE - ASSUMED CARE AT 1900. PATIENT OBSERVED IN DAY ROOM WITH A FLAT AFFECT, ISOLATES TO SELF, LITTLE INTERACTION WITH OTHER PEERS. HE REPORTS 'IM DOING FINE.' HE IS MED COMPLIANT AT THIS TIME. HE REPORTS ATTENDING GROUPS AND PARTICIPATING. HE HAS DIFFICULTY STAYING IN HIS ROOM DURING HS. HE STATES 'I LOST MY GLASSES AND I JUST CANT SLEEP WITHOUT THEM.' HE IS IN THE DAY ROOM AWAKE AT THIS TIME. HE CURRENTLY DENIES SI HI FEELINGS OF DEPRESSION ET ANXIETY. HE IS DISCHARGE FOCUSED. HE DENIED MEDICAL CONCERNS WITH NO S/S OF DISTRESS. NURSING WILL MAINTAIN ALL PRECAUTIONS TO ENSURE SAFETY AT ALL TIMES.
[2018-08-10 08:16] VITALS: BP 97/72
--- NOTE | 2018-08-10 10:44 | NUR ---
[id number]: Report rec from [facility] shift, care assumed. Ambulatory to , feeds self, takes meds whole w/o difficulty. Cooperative with staff, attends group therapy with participation observed. Denies pain or discomfort, Metoprolol held this a.m. for B/P.
--- NOTE | 2018-08-10 11:42 | NUR ---
Date of Admission: 07/31/18 Date of Activity Therapy Assessment: 08/04/18 Activity Goal: Increase impulse control and frustration tolerance Initial Goal: 1 Group activity/day Weekly progress towards goal: Achieving current goals Group participation level: Moderate Behaviors observed: Patient is consistently participating in 1-2 groups per day. Participation level is moderate to full. Patient ocassionally takes leadership role in group. No aggression noted. Limited disorientation. Plan: Continue consistent participation
--- NOTE | 2018-08-10 11:54 | NUR ---
Nutrition: pt admitted with psychosis, MDD and seen for LOS. PMH: CKD, hep C, CHF, CAD. On mechanically altered chopped, 2 gm Na diet. Observed poor dentition however pt reports no chewing difficulty and dislikes the chopped diet. No ST eval-may consider. Ensure TID, pt drinks 100% PO intake of meals 50-100% with a few recent 0% intakes possibly due to mood. No food preferences voiced, states likes anything. UBW pt reported as 165# and ht 5/9", stable weights per pt. RD requested current weight as not obtained on unit. Consider ST eval for pt request of diet upgrade. Otherwise low risk.
--- NOTE | 2018-08-10 14:25 | NUR ---
WOUND CARE FOLLOW UP; THE WOUNDS BETWEEN THE TOES ARE HEALED. RECOMMENDATION; WOUND CARE WILL SIGN OFF.
[2018-08-10 20:11] VITALS: BP 114/91
--- NOTE | 2018-08-10 23:01 | NUR ---
PATIENT AWAKE, ASKING SEVERAL QUESTIONS OF PLAN OF CARE AND DISCHARGE INSTRUCTIONS. THIS NURSE OFFERED PRN TRAZODONE TO WHICH PATIENT TOOK WITH NO FURTHER ISSUES WILL CONTINUE TO MONITOR.
[2018-08-11 07:30] VITALS: BP 110/77
[2018-08-11 08:00] VITALS: BP 110/77
--- NOTE | 2018-08-11 08:00 | NUR ---
PT UP WALKING AROUND THE UNIT. PT STILL WAITING ON HIS GLASSES. PT LUNGS CLEAR. PT STATED HE DIDN'T WANT TO TALK MUCH, DUE TO US THINKING HE IS CRAZIER THAN HE ALREADY IS. PT STATED HE DIDN'T GET MUCH SLEEP LAST NIGHT, JUST UNABLE TO GET TO SLEEP. PT STATED HIS STOMACH WAS UPSET AND FELT LIKE VOMITING. PT WANTING TO KNOW ABOUT IF HIS ANTIVIRAL MED WAS STARTED YET. STATED YES IT STARTED THURSDAY.
--- NOTE | 2018-08-11 10:30 | NUR ---
CALLED HIS SISTER AND TOLD HER THE ADDRESS HERE IN ORDER TO GET HIS GLASSES FED-X.
[2018-08-11 14:05] LABS: CD3 % 74.5 % (57.5-86.2); CD4 % 34.8 % (30.8-58.5); CD4:CD8 0.86 (0.92-3.72); CD8 % 40.6 % (12.0-35.5)
[2018-08-11 19:35] VITALS: BP 104/74
--- NOTE | 2018-08-12 01:40 | NUR ---
PT AWAKENED AND STATED HE HAD BEEN INCONTINENT AND NEEDED BED CHANGED. PT STATED HE HAS HAD R LOWER BLADDER PAIN FOR 4 DAYS. THAT HE AWAKENED TO A WET BED AND HE IS NO LONGER IN PAIN. PT STATED HE WANTS TO HAVE AN ASSESSMENT AND POSSIBLY BE TRANSFERED TO HIS REG EXPLAINED TO PT THAT HOSPITALIST WILL TALK TO HIM IN THE AM.
--- NOTE | 2018-08-12 04:57 | NUR ---
NO BEHAVIOUR ISSUES TONIGHT, RESTED BUT WOKE UP AROUND 0200 SAYING HE WOKE UP IN PAIN AND THIS CONTRIBUTE TO HIS INCONTINENCE. WAS PACING UP AND DOWN THE HALLWAY, GIVEN TYLENOL, HE IS BACK TO BED AT THIS TIME, MONITORED.
[2018-08-12 08:10] VITALS: BP 115/94
--- NOTE | 2018-08-12 14:05 | NUR ---
ASSUMED PT CARE AT 0700. PT AWAKE, ALERT WITH FLAT AFFECT. AMBULATES SELF, ATTENDING ALL GROUPS. CONFUSED AT TIMES. C/O UPSET STOMACH AT THIS TIME, DR. LAECY NOTIFIED AND ORDERED PEPTOL BISMOL. WILL CONT POC.
[2018-08-12 19:34] VITALS: BP 106/86
[2018-08-13 00:05] LABS: HIV-1 BY PCR <40 (())
--- NOTE | 2018-08-13 00:47 | NUR ---
NURSES NOTE - ASSUMED CARE AT 1900. THIS NURSE ENTERED PATIENTS ROOM TO GREET PATIENT WHO WAS UNDRESSED. THIS NURSE ASKED IF PT WAS HOT AND PT STATED 'NO.' PT COULD NOT PROVIDE AN EXPLANATION TO WHY HE WAS UNDRESSED. GOWN WAS GIVEN TO PATIENT. PT HAS BEEN ISOLATING IN HIS ROOM THIS EVENING WITH MINIMAL INTERACTION WITH PEERS AND STAFF. HE APPEARS DISHEVELED AT TIME OF ASSESSMENT. HE IS ALERT AND ORIENTED 2-3X. PATIENT C/O NOT BEING ABLE TO 'SEE' D/T LACK OF GLASSES. HE DENIES SI HI AND HALLUCINATIONS, DENIES DEPRESSION ET ANXIETY. BUT AFFECT AND MOVEMENTS ARE NOT CONGRUENT WITH STATEMENTS. HE DENIES MEDICAL CONCERNS WITH NO S/S OF DISTRESS. PT HAD BM T-2 AGO. WILL MAINTAIN ALL PRECAUTIONS TO ENSURE SAFETY AT ALL TIMES.
--- NOTE | 2018-08-13 07:57 | NUR ---
0720: Report rec from noc shift, care assumed. Ambulatory in halls and to DR, uses wall rail to steady self, gait slow. Oriented to name and place, cheerful mood. Denies pain or discomfort.
[2018-08-13 19:33] VITALS: BP 116/90
--- NOTE | 2018-08-13 21:48 | NUR ---
Care assumed of patient at 1900: Patient alert and oriented to person with confusion and forgetfulness on time, place and situation. Patient reports feeling "fuzzy, disoriented". Patient sitting in day room, watching TV with other peers. Patient pleasant and cooperative during initial assessment. When approaching patient with medication, patient became agitated and irritable. Patient demanding to see an MD right now. Patient stating that he wants to be transferred to a "real hospital". 2 nurses attempted to give PO medication, patient refused. Medication still in packaging but patient states that he doesn't know who packaged it and he will not take it. Reports that he does not like how his medications make him feel so he will no longer take any. Denies SI/HI. No AH/VH reported or observed. Unknown if patient is paranoid about medications or truly does not like the way it is making him feel.
--- NOTE | 2018-08-14 01:53 | NUR ---
ASSUMED CARE @ 2230. SITTING IN A CHAIR IN HIS ROOM SLEEPING. WILL CONTINUE TO MONITOR Q 12 MINUTES FOR PT SAFETY.
--- NOTE | 2018-08-14 07:35 | NUR ---
0500 PT CAME TO THE DAYROOM WEARING ONLY PANTS, NO SHIRT (OR GOWN). PATIENT ESCORTED BACK TO HIS ROOM, WHERE HE SAID THAT HE WANTED TO GO TO A "REAL HOSPITAL" WITH ASSURANCES THAT HE HAD A MEDICAL DOCTOR ON HIS CASE, AND THAT [facility] CAN PROVIDE ANY CARE THAT HE NEEDS, HE SHARED THAT HE HAS NAUSEA, BUT HAS NOT VOMITED. REPORTS THAT HIS CHEST HURTS, AND SHOWS WITH HIS HAND AN AREA FROM ARM TO ARM ON THE UPPER CHEST AREA. HAD TO BE CONVINCED TO ALLOW VS TO BE TAKEN. 05:10 VS 117/81 92 100% ON RA. FAMOTIDINE 20 MG AND NITROGLYCERIN SUB LINGAL 0.04 GIVEN @ 05:20. @ 05:25 REPORTS STOMACH FEELS BETTER, LESS NAUSEA, CHEST STILL HURTS IN THE SAME UPPER CHEST FROM ARM TO ARM. REPORTS THAT HE FEELS DISORIENTED, HOWEVER, NO MORE DISORIENTED THAT HE DID BEFORE TAKING THE NITROGLYCERIN. ORDER OBTAINED FOR AN 12 EKG. @ 05:55 VS 105/80 73 18 96% SPO2 ON RA. REPORTS DULL PAIN ON R SIDE OF CHEST, SOB, NAUSEA WHICH HAS IMPROVED AND FEELS SIMILAR TO ACID REFLUX. 12 LEAD EKG DONE, RESULTS CALLED TO NURSE PRACTICIONER FOR DR JOSEY NORMAN. NEW ORDER OBTAINED FOR K[facility]. ADMINISTERED TO PATIENT. SECOND DOSE OF NITROGLYCERIN PROVIDED NITORGLYCERIN TABLET GIVEN SUBLINGAL.
[2018-08-14 08:18] VITALS: BP 113/80
--- NOTE | 2018-08-14 09:28 | NUR ---
[id number]: Report rec from noc shift, care assumed. Resting supine in bed, eyes closed, awakens readily to verbal stimuli, no shift reported pt had zero hours of sleep during the noc. Pt ambulatory to DR, gait slow, uses hand rail while walking in chamberlain. Denies chest pain,nausea or dizziness. Feeds self, appetite poor, consumed 5% of meal, drank 100% of Ensure. Takes meds whole w/o swallowing problems noted. Mood is calm, pleasant with staff, antisocial with others. Attended 09 therapy group, observed pt falling asleep during group, frequent reminders to participate, pt accepting of instructions.
--- NOTE | 2018-08-14 13:42 | NUR ---
Date of Admission: 07/31/18 Date of Activity Therapy Assessment: 08/04/2018 Activity Goal: 1 group per day Initial Goal: Pt will exhibit an increase in impulse control and frustration tolerance. Weekly progress towards goal: did not achieve Group participation level: Moderate Behaviors observed:More engaged in exercise groups. Some disorientation. Appears to breath heavily during exercise groups. Steps into a leader role, at times. Plan: No change towards goal, though encourage two groups a day.
[2018-08-15 03:41] VITALS: BP 113/80
--- NOTE | 2018-08-15 05:11 | NUR ---
SPOKE WITH PATIENT THIS EVENING IN THE DAYROOM. HE STATES HE IS READY TO GO HOME BUT FEELS THAT HE IS GETTING MIXED MESSAGES FROM FAMILY AND STAFF ABOUT HIS D/C PLANS. HE STATES THAT HE FEELS LIKE HIS MEDS THE LAST 3 DAYS HAVE BEEN MAKING HIM FEEL OUT OF IT. ONCE THEY WEAR OFF HE FEELS HE CAN THINK CLEARLY. HE IS NOT SURE WHAT MEDS THEY ARE OR WHEN HE TAKES THEM. HE DID GO ON TO BED TONIGHT AND TOOK HIS MEDS WITHOUT PROBLEM. LISTENED TO PATIENT AND TOLD HIM THAT WILL ASK THAT THE DR OR FICTION AND NONFICTION PROSE WRITER CLARIFY D/C ORDERS FOR HIM AND HE IS TO LET NURSE KNOW WHEN HE IS FEELING "OUT OF IT." PATIENT DID GET UP AND ASK FOR PAIN MED FOR SLIGHT HEADACHE. TYLENOL GIVEN AT 0100. PATIENT WENT BACK TO SLEEP AND CONTINUES TO SLEEP AT THIS TIME. PT DOES HAVE INCREASED REDNESS AND TENDERNESS IN CRACK OF BUTTOCKS. NYSTATIN CREAM APPLIED AND DID GIVE SOME RELIEF. PATIENT DID STATE THAT HE HAS HIS EYEGLASSES BACK BUT HE KEEPS LAYING THEM DOWN AND FORGETTING WHERE HE LEAVES THEM.
--- NOTE | 2018-08-15 09:23 | NUR ---
[id number]: Report rec from noc shift, care assumed. Pt dressed and ambulatory in halls and to DR, pleasant mood, no paranoid thoughts or comments noted. Cooperative with staff and other pts, feeds self, appetite fair-requires encouragement with meal. Takes meds whole w/o difficulty, attending 0900 therapy group, participation minimal.
[2018-08-15 10:21] VITALS: BP 106/85
[2018-08-15 10:30] VITALS: BP 101/68
[2018-08-15 10:45] VITALS: BP 101/68
[2018-08-15 14:24] LABS: BE(vivo) 2.1 mmol/L (-2 to +3); HCO3 25.3 mmol/L (22.0-26.0); PCO2 35.1 mmHg (35.0-45.0); PO2 82.8 mmHg (80.0-100.0); pH 7.476 (7.360-7.450); sO2 96.8 % (92.0-98.0)
[2018-08-15 14:49] LABS: HEMATOCRIT 42.5 % (42.0-52.0); HEMOGLOBIN 13.3 gm/dL (14.0-18.0); MCH 25.7 pg (26.0-34.0); MCHC 31.3 g/dL (28.0-37.0); MCV 82.2 fL (80.0-100.0); PLATELET COUNT 161 thou/uL (150-400); RBC 5.17 mil/uL (4.50-6.00); RDW 19.7 % (10.5-14.5); WBC 6.2 thou/uL (4.0-11.0)
[2018-08-15 15:04] LABS: ALBUMIN 3.4 g/dL (3.4-5.0); CALCIUM 9.6 mg/dL (8.5-10.1); POTASSIUM 4.7 mmol/L (3.5-5.1); TOTAL BILIRUBIN 1.5 mg/dL (<0.1-1.0); TOTAL PROTEIN 7.2 g/dL (6.4-8.2)
[2018-08-15 15:13] LABS: ABSOLUTE NEUTROPHILS 4.2 thou/uL (1.4-8.2); PLATELET ESTIMATE NORMAL
[2018-08-15 15:14] LABS: ANISOCYTOSIS 2+
[2018-08-15 15:15] LABS: POIKILOCYTOSIS 1+
--- NOTE | 2018-08-15 15:33 | NUR ---
Rani sent weekend updates to Darshan [place] [phone]
[2018-08-15 19:15] VITALS: BP 111/85
[2018-08-15 20:41] LABS: URINE BILIRUBIN NEGATIVE (Negative); URINE BLOOD NEGATIVE (Negative); URINE CLARITY CLEAR; URINE COLOR YELLOW; URINE GLUCOSE-RANDOM* NEGATIVE (Negative); URINE KETONES NEGATIVE (Negative); URINE LEUKOCYTES-REFLEX NEGATIVE (Negative); URINE NITRITE-REFLEX NEGATIVE (Negative); URINE PROTEIN (DIPSTICK) NEGATIVE (Negative); URINE SPECIFIC GRAVITY <= 1.005 (1.005-1.035); URINE UROBILINOGEN 0.2 E.U./dl (0.2-1.0)
--- NOTE | 2018-08-15 22:50 | NUR ---
Care assumed of patient at 1900: Patient sitting in his room at start of shift. Patient asked to come to the dining room to watch TV. Staff provided SBA with use of FWW from his room to dining room. Patient short of breath upon exertion. Patient appears lethargic. Cyanosis observed to lips, ear lobes and fingers once arriving at dining room. Patient assisted to chair. VS assessed. Resp 28, O2 78% on RA. Patient placed on O2 3L/min per NC. O2 increased to 94% after receiving O2. Patient restless and wanting to pace from room to dining room. Patient ate 100% snack. Patient took medications whole without difficulty. Patient continues to be restless. Patient re-positioned in bed to have HOB elevated. Patient reports that he does not like wearing his O2 but becomes SOB when he is not wearing it. Patient denies chest pain. Patient reports that he feels like he is going to . Denies SI/HI/AH/VH. Patient reports that he does not know how to explain his symptoms but knows that "something is wrong". Lungs diminished, CTA, non-productive cough observed. Message left with JAZMIN Kendall to follow up on change of condition. UA collected and sent to lab this shift.
--- NOTE | 2018-08-16 00:16 | NUR ---
Spoke with Emma Kendall NP, regarding patient change of condition. Critical lactic results reviewed. Negative UA for infection, Negative chest x-ray for infection. Patient continues to have progressive shortness of breath. 3+ pitting edema to bilateral lower extremities. Petechia present to BLE. Patient restless. Attempting to stand, walk. Unsteady gait, poor balance. PALEONTOLOGICAL HELPER feels that patient would benefit from medical inpatient stay and potentially IV diuretic medication administration. Spoke with arelis Benjamin. IV placed to right AC 20g. Tolerated well. Order obtained to transfer patient to [facility] in CCU. Spoke with MARLENY Hopson for report. Spoke with patient sister over the phone to notify her of transfer to medical floor.
--- NOTE | 2018-08-16 07:57 | EKG ---
[address] [address] ELECTROCARDIOGRAM REPORT Name: WAYNE WRIGHT Room #: 526A-A DIS IN M.R.#: [id number] ������������������ Admission: 07/31/18 ������������������ Attend Phys: Polo Randall DO Discharge: 08/16/18 ������������������ Date of : 51 Report #: [id number] ����������������������������������������������������������������� [id number] THIS REPORT FOR: //name// [facility] Test Date: 2018-08-14 Test Time: 05:57:35 Pat Name: WAYNE WRIGHT Department: Room: 526A A Gender: M Booster Operator: lorraine : 1955 Requested By: Stefano Barreto Order Number: [id number] MD: Juliocesar Navarro Measurements Intervals [place] Rate: 78 P: AK: QRS: 168 QRSD: 156 T: -78 QT: 418 QTc: 477 Interpretive Statements Atrial fibrillation Ventricular premature complex RBBB and LPFB Anterior infarct, age indeterminate Compared to ECG 08/01/2018 16:13:27 Ventricular premature complex(es) now present Electronically Signed On 08-16-2018 7:57:32 CDT by Juliocesar Navarro [email or web address] ��������������������������������������������� <ELECTRONICALLY SIGNED> ���������������������������������������� By: Juliocesar Navarro MD, [facility] ��������������������������������������������� 08/16/18 [phone] Juliocesar Navarro MD, [facility] /EPI
== END 2018-08-16 00:05 | disposition short-term general hospital (02) | DRG 884 ==
LOC: SBH
PROVIDERS: Hospitalist; Internal Medicine; ADMIT Psychiatry & Neurology Psychiatry
DX: F01.51 Vascular dementia, unspecified severity, with behavioral disturbance (principal); I48.2 Chronic atrial fibrillation; I25.10 Atherosclerotic heart disease of native coronary artery without angina pectoris; I25.5 Ischemic cardiomyopathy; E78.5 Hyperlipidemia, unspecified; Z21 Asymptomatic human immunodeficiency virus [HIV] infection status; B18.2 Chronic viral hepatitis C; N18.9 Chronic kidney disease, unspecified; I12.9 Hypertensive chronic kidney disease with stage 1 through stage 4 chronic kidney disease, or unspecified chronic kidney disease; Z95.810 Presence of automatic (implantable) cardiac defibrillator; I25.2 Old myocardial infarction; Z95.5 Presence of coronary angioplasty implant and graft; Z79.01 Long term (current) use of anticoagulants; Z79.899 Other long term (current) drug therapy
CPT/HCPCS: 10880

== ENCOUNTER 2018-08-21 10:39 | Inpatient (IN) | payer OTHER ==
[~2018-08-21] VITALS: Ht 170.2 cm; Wt 77.8 kg
[~2018-08-21 10:39] MED LIST: ASPIRIN81 M2 PO; COLACE100 MG PO; DIGOXIN125 MCG PO; FENOFIBRATE160 MG PO; KAPSPARGO SPRIN25 MG PO; LASIX 40 MG TAB40 M2 PO; LIPITOR40 MG PO; NITROGLYCERIN0.4 MG SUBLING; PEPCID20 MG PO; PLAVIX 75 MG TA75 M1 PO; POTASSIUM20 PO; PROSCAR 5MG TABL5 MG PO; PROZAC20 MG PO; SPIRONOLACTONE25 MG PO; WELLBUTRIN 100100 MG PO
[2018-08-21] MEDS ORDERED: ABACAVIR300 MG PO (12:06)
[2018-08-21] MEDS ORDERED: LAMIVUDINE100 MG PO (12:06)
[2018-08-21] MEDS ORDERED: TIVICAY50 MG PO (12:06)
[2018-08-21] MEDS ORDERED: TRAZODONE HCL50 MG PO (12:08)
[2018-08-21] MEDS ORDERED: LEXAPRO 10 MG T10 M1 PO (12:08)
[2018-08-21] MEDS ORDERED: HALOPERIDOL2 MG/1 ML PO (12:09)
[2018-08-21] MEDS ORDERED: VITAMIN D5000 UNIT PO (12:19)
[2018-08-21] MEDS ORDERED: NYSTATIN-TRIAMC15 GM TOP (12:19)
[2018-08-21 19:45] VITALS: BP 97/69
--- NOTE | 2018-08-21 23:51 | NUR ---
ADMISSION NOTE- PATIENT ARRIVED TO THE UNIT FROM MEDICAL FLOOR PRIOR TO THIS RN'S SHIFT. HE IS KNOWN TO THIS UNIT FROM A PREVIOUS ADMISSION BEFORE BEING TRANSFERRED TO MEDICAL. AT TIME OF INITIAL ASSESSMENT HE APPEARS WITH A EUTHYMIC AFFECT AND WELL GROOMED. PT HAS EXTENSIVE MEDICAL HX, SEE PHYSICIAN NOTES FOR COMPLETE DX. THIS NURSE OBTAINED ADMISSION ORDERS FROM DR. TENORIO AND USED MED RECONCILIATION TO CONTINUE INPATIENT MEDICATIONS AND ORDERS FOR ADMISSION TO [facility]. HE IS ALERT AND ORIENTED X3, VSS UPON ADMIT, PATIENT HAD NO QUESTIONS FOR THIS RN. THROUGHOUT ASSESSMENT PATIENT APPEARS TO BE A POOR HISTORIAN AT TIMES LOOKING AT THIS NURSE WITH A BLANK AFFECT WHEN ASKED QUESTIONS. THIS NURSE REORIENTED PATIENT TO UNIT, EXPLAINED DAILY ROUTINES, AND OFFERED FOOD AND DRINK. THROUGHOUT OBSERVATION THIS NURSE NOTICED PT AFTER WALKING DOWN THE ASH HE BECAME SHORT OF AIR AND NEEDED TO SIT DOWN. HE DID NOT APPEAR TO BE IN MEDICAL DISTRESS AT THAT TIME. HE IS SOMEWHAT DEMANDING AT TIMES R/T MEDICATION ADMINISTRATION TIMES AND SMALL TASKS. NURSING INITIATED ALL PRECAUTIONS TO ENSURE SAFETY OF PATIENT AT ALL TIMES. AT THIS TIME PATIENT IS IN BED WITH EYES CLOSED RR EVEN AND UNLABORED. AT TIME OF ADMIT HE DENIED SI HI WELL HALLUCINATIONS. WILL CONTINUE TO MONITOR.
[2018-08-22 07:30] VITALS: BP 99/73
--- NOTE | 2018-08-22 07:30 | NUR ---
PT SITTING ON SIDE OF BED THIS AM. PT STATED HIS BRIEF FELL APART. PT USED BATHROOM AND HAD BM. PT BRIEF WAS SPLIT AT SEAMS. PT HAS +1 EDEMA TO LE AND +2 EDEMA TO PEDAL. PT GETS SOA WITH EXERTION, PT SAT ON ROOM AIR 99%. PT STATED ITS HIS HEART THAT CAUSES HIM TO GET SOA. PT LUNGS CLEAR, DIMINISHED TO BASES.
[2018-08-22 07:45] VITALS: BP 99/73
[2018-08-22 09:54] LABS: INR 1.9; PROTIME 19.7 Seconds (9.3-11.4)
--- NOTE | 2018-08-22 14:56 | NUR ---
PT SOA IS IMPROVING WITH AMBULATION TODAY.
[2018-08-22 19:21] VITALS: BP 95/67
--- NOTE | 2018-08-22 23:08 | NUR ---
ASSUMED CARE OF THE PT AT 1900 PM. ALERT ET ORIENTED X 3. MAKES NEEDS KNOWN. BECOMES SHORT OF BREATHE WHEN HE WALKS VERY FAR. HEART RATE REGULAR. LUNGS CLEAR BILATERALLY. +PP BILATERALLY. DENIES ANXIETY, DEPRESSION, A/V HALLUNICTIONS. CHECKED HIS O2 SAT, WHICH WAS 84% THE PT WAS TOLD TO BREATHE THROUGH HIS NOSE AND THEN THROUGH HIS MOUTH. HE BROUGHT HIS O2 SAT UP TO 94% ON ROOM AIR. REMAINS ON 12 MINUTE CHECKS FOR HIS SAFETY.
--- NOTE | 2018-08-22 23:18 | H ---
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 HISTORY OF PRESENT ILLNESS: This is a 63-year-old male, known to me from a prior admission before he went medical. The patient's initial admission on medical floor dates back to 08/16/2018. Prior to that, [facility] for about a [facility]. The patient was tested by Dr. Pitt, which confirmed the diagnosis from the neuropsychological standpoint. On interview today, he is pleasant, lying in bed, back of the bed raised, watching television. Denied SI or HI. He did have some morbid thinking when I discussed with him the fact that the major challenges with him being placed is his personal assets need to be used to pay for his care. He is having trouble managing those due to his dementia. There is a Mr. Clara who is supposedly his financial examiner. He reports to me yesterday his sister was in touch with Mr. Elizabeth. I explained to him that this will be a major goal of his psychiatric readmission for Thursday is to get in touch with the companies and persons that are custodians for his money and see how much he has, because if he has over a fairly low threshold he is not eligible for Medicaid and those funds need to be put to use for his placement. The patient has an advanced congestive heart failure with an ejection fraction last tested around 10%. Here Dr. Navarro has been following him. The patient denied pain, nausea, vomiting, fever or diarrhea. Otherwise, brief 10-point review of systems was negative. PAST MEDICAL AND SURGICAL HISTORY: Include atrial fibrillation, hepatitis C, chronic kidney disease, CHF, EF of 10%, coronary artery disease with stents, psychiatric history of mood disorder, HIV, hyperlipidemia, cardioversion defibrillator implant, hernia repair. He is back on HAART therapy with the help of Dr. Sidney Dela Cruz. FAMILY HISTORY: Significant family history of heart disease, dad of DC at 60; cancer, breast cancer in his mother; hypertension and hyperlipidemia. [address] [address] HISTORY AND PHYSICAL Name: WRIGHTWAYNE Room #: 526B-B [facility] IN M.R.#: [id number] Admission: 08/21/18 ������������������ Attend Phys: Polo Randall DO Discharge: ������������������ Date of : 51 Report #: [id number] SOCIAL HISTORY: Recreational drug use remotely. Former smoker, he has smoked cigarettes for 40 years, he quit in 2007. Past alcohol use. CURRENT MEDICATIONS: Trazodone 50 mg p.o. at 2300, Haldol 2 mg p.o. at 0900, 1600 and 2100 for mood stabilization and treatment of some delusional thinking, metoprolol succinate 25 mg p.o. daily, that is extended release metoprolol; furosemide 40 mg p.o. daily for CHF, melatonin 10 mg p.o. at bedtime for sleep, atorvastatin 40 mg p.o. at bedtime, warfarin 2.5 mg p.o. daily for anticoagulation, fenofibrate 160 mg p.o. daily, nystatin topically applied b.i.d., Epivir 300 mg p.o. daily, finasteride 5 mg p.o. daily, citalopram 10 mg p.o. daily, docusate 100 mg p.o. b.i.d., digoxin 125 mcg p.o. daily for systolic heart failure and history of AFib, clopidogrel, which is Plavix, 75 mg p.o. daily; vitamin D3 at 5000 International Units p.o. daily, Abacavir 600 mg p.o. daily, famotidine 20 mg p.o. daily, Pepto-Bismol was getting 30 mL q.3 hours p.r.n., and sublingual nitro p.r.n. for chest pain, has not gotten any nitro, I believe, while he has been on the medical floor. LABORATORY DATA: Most recent laboratories are as follows: Hematology showed H and H of 14 and 41.5, white count slightly low at 3.7, platelet count 177. Coagulation: INR 1.4, PT 14.9. Chemistry: Sodium 141, potassium 3.7, chloride 104, bicarbonate 29, anion gap of 8, BUN 29, creatinine 1.5, estimated GFR 47, glucose 88, calcium 9.3. Most recent imaging, chest x-ray was done on the , which showed generalized cardiomegaly with left-sided pacemaker defibrillator in place, decreased inspiration. There is mild increase in density throughout the left lower lobe, more suggestive for atelectasis or pneumonitis, was read by Dr. White. He has had bilateral swelling in his feet, right greater than left. No sonographic evidence of deep venous or greater saphenous vein thrombosis. PHYSICAL EXAMINATION: Ambulation was not tested, though he claims he could not walk without a walker. MENTAL STATUS EXAMINATION: This is a well-developed, fairly nourished, disabled male appearing his stated age. Attention intact. Concentration intact. Speech is normal in rate and volume. Thought process linear, limited. Thought content, typically hopeless, helpless, leaving this a.m. No psychomotor agitation or psychomotor retardation. No auditory, visual or tactile hallucinations. Denied suicidal intent or plan. Endorses helplessness, hopelessness. Denies homicidal intent or plan. Memory noted to be impaired. Insight impaired. Judgment impaired. Fund of knowledge average range. FORMULATION: A 63-year-old male, being readmitted due to his care unit does not handle major neurocognitive disorder. DIAGNOSES: Major neurocognitive disorder, due to the human immunodeficiency virus without behavioral disturbance. 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 Numerous comorbidities including the [facility], [address] [address] HISTORY AND PHYSICAL Name: WAYNE WRIGHT Room #: 526B-B [facility] IN ..#: [id number] Admission: 08/21/18 ������������������ Attend Phys: Polo Randall DO Discharge: ������������������ Date of : 51 Report #: [id number] hyperlipidemia, chronic congestive heart failure. PLAN: Continue current medications per Dr. Nuñez's discharge list. Continue to monitor mood and behavior. Thursday make contact with his financial examiner and his healthcare DPOA. At this point, his DPOA has been inactive and he will be signing himself voluntarily. ESTIMATED LENGTH OF STAY: 7-10 days. DIET: He will be on a heart healthy diet. ��������������������������������������������� <ELECTRONICALLY SIGNED> ���������������������������������������� By: Polo Randall DO ��������������������������������������������� 08/22/18 2318 [id number] Polo Randall, /nt
--- NOTE | 2018-08-23 01:49 | NUR ---
CHECKED THE PT'S O2 SAT ON ROOM AIR, IT WAS 84%. THE PT WAS SITTING IN THE BED, HIS 02 SAT CAME UP TO 93%. CALLED THE N.P. WHO WAS MAIL HANDLER SORTER, WHO ORDERED 02 ON AT 2L PER N.C. REMAINS ON 12 MINUTE CHECKS FOR HIS SAFETY.
--- NOTE | 2018-08-23 06:00 | NUR ---
THE PT SLEPT 7.2 HOURS LAST NIGHT.
[2018-08-23 08:00] VITALS: BP 111/84
[2018-08-23 08:35] VITALS: BP 111/84
--- NOTE | 2018-08-23 09:21 | NUR ---
assumed pt care report recieved form nurse. pt is aox4 . vss. medications given as ordered. plavix not available yet. will contact pharmacy. pt ate breakfast in activity room with other pts. pt is wearig 2 l of oxygen via nc continuously. pt states that he gets soa when going to the restroom without the oxygen. pt found sitting in chair in his room soa , he states that he cannot catch his breath. oxygen saturation checked, pt is at 80% on ra because he just came back from the restroom. oxygen applied and respiratory paged for a treatment. order for prn breathing treatment received from doctor. this nurse requested repiratory therapist that an extension cord be brought to pt room to allow him to move to restroom attached to o2. sitter 1:1 order received from doctor per charge nurse request. warehouse team member was notified. pt currently in room attached to oxygen. o2 saturation back up to 98%. will continue to monitor
--- NOTE | 2018-08-23 13:32 | NUR ---
Assistant Construction Superintendent met with Dr. Randall and financial wellness coach Shane Salinas . Reason for visit was that patient needs to make decisions regarding his irrevocable trust, will establishment, living trust and POA. Mr. Salinas has a rranged for an corporate associate attorney to come this afternoon at 4:00 to meet with patient and finalize decisions surrounding these issues. While meeting a call was made to patient's DPOA (sister) Skyla Whitaker who related that the CW on the second floor told her that patient needed to return to [facility] to assist in palcement. Patient went on to have a change of address form completed for a PO box, signed a check for services rendered by Mr. Salinas ($600 for taxes, $50 for PO bax and the remainder for Mr. Elizabeth performing tasks for patient) and filled out the change of address form. Sales Service Professional performed by Father Moris. Placement now needed for patient. Mr. Salinas requesting [address] Randall feels an AL facility would work well for him. hoping for [facility], but sister said that CM on 2nd floor told her they would not accept him. Warning Analyst's name is Jim Vallecillo
--- NOTE | 2018-08-23 16:24 | NUR ---
LALY sent a referral to [facility] ([place] concerning potential admission. LALY will follow-up with NF. LALY will reach out to pt sister concerning d/c
--- NOTE | 2018-08-23 18:10 | NUR ---
PT ON 1:1 SITTER FOR THE REST OF THE DAY. NO COMPLAINT. REMAINS ON OXYGEN 2 L NC. PT HAS GOOD APPETITE AND CONSUMED ALL HIS MEALS
[2018-08-23 19:54] VITALS: BP 106/77
--- NOTE | 2018-08-24 01:25 | NUR ---
NURSES NOTES - ASSUMED CARE AT APPROXIMATELY 1900. PATIENT IS IN ROOM WITH 1:1 SITTER R/T OXYGEN TUBING. PT IS ON CONT. 3L TO ENSURE >90% O2 SATURATION. THIS EVENING RT CAME UP TO UNIT TO TRIAL A TEST ON SAID PATIENT UNDER CONTINOUS 02 SAT MONITORING STARTING WITH 0L OF 02 THEN PROGRESSING IF NEED BE. PATIENT HAS BEEN CALM AND COOPERATIVE THROUGHOUT EVENING. HE APPEAERS WITH A FLAT SAD AFFECT, CLEAN APPEARANCE. HE CURRENTLY DOES DENY SI HI AND HALLUCINATIONS. NYSTATIN GIVEN TO PATIENT UPON HS MEDS. HE DID NOT REPORT ANY OTHER MEDICAL CONCERNS. OF THIS MOMENT PATIENT IS ON ROOM AIR, O2 SATS VARY BETWEEN 85-95% DEPENDING ON PER PATIENTS BREATHING STYLE. RR APPEAR EVEN AND UNLABORED. UPON AUSCULTATION OF LUNGS, ALL LOBES HAD COURSE SOUNDS. IT WAS ALSO OBSERVED PATIENT USING ACCESSORY MUSCLES TO HELP BREATH. WILL CONTINUE TO MONITOR AND DISCUSS WITH RT PLAN GOING FORWARD/EVAL NEED FOR O2 THERAPY. WILL CONTINUE TO MONITOR AND ENSURE SAFETY AT ALL TIMES.
--- NOTE | 2018-08-24 06:25 | NUR ---
PATIENT SLEPT 8 HOURS LAST NIGHT
[2018-08-24 06:26] LABS: CALCIUM 9.3 mg/dL (8.5-10.1); CREATININE 1.7 mg/dL (0.7-1.3); POTASSIUM 3.8 mmol/L (3.5-5.1)
--- NOTE | 2018-08-24 09:17 | NUR ---
ASSUMED CARE AT 0700 THIS MORNING. PT. UP ON THE UNIT. HE SITS HEAD DOWN IN A W/C AT THE TABLE. WHEN MEDS WERE PRESENTED TO HIM, STAFF HAD TO HELP HIM PUT THEM IN HIS MOUTH. HE HELD THE MEDS IN HIS MOUTH UNTIL THEY DISSOLVED. HE THEN DROOLED THE MEDS ONTO HIS LAP. DURING GROUP HE REMAINED AT THE TABLE. HE DID ATTEMPT TO RETURN THE BALL WHEN IT CAME HIS DIRECTION. HIS HEAD PARTLY UP, BUT STILL LOOKING DOWN. NO ACTING OUT BEHAVIORS NOTED AT THIS TIME.
[2018-08-24 09:35] VITALS: BP 93/66
--- NOTE | 2018-08-24 09:42 | NUR ---
ASSUMED CARE AT 0700 THIS MORNING. ON THE UNIT WITH OXYGEN ON 2 LPM PER NASAL CANNULA. AWAKE, ALERT, SMILING. TOOK HIS MEDICATION WITHOUT PROBLEMS. ATE MEALS ON THE UNIT. ATTENED MORNING GROUP. GROUP WAS KICKING A BEACH BALL. MOST PARTICIPANTS HAD A HARD TIME WITH THIS DETAIL. WAS ON 1:1 AT THE START OF THE SHIFT. DR. LÓPEZ TOOK PT. OFF 1:1. HE CONTINUES TO HAVE OXYGEN TANK ON THE FLOOR.
[2018-08-24 10:30] VITALS: BP 93/66
--- NOTE | 2018-08-24 16:27 | NUR ---
LALY sent a referral to [facility] for AL.
[2018-08-24 19:23] VITALS: BP 100/71
--- NOTE | 2018-08-24 19:53 | NUR ---
ASSUMED CARE @ 1900 ON 08/24/18. SITTING ON COUCH WATCHING BASEBALL GAME. COOPERATED WITH ASSESSMENT, DENIED HI, SI AND HALLUCINATIONS. REPORTS WILL BE INTERVIEWED BY PROSPECTIVE FACILITY TOMORROW, GOAL OF GOOD NIGHTS SLEEP TONIGHT SO CAN MAKE A GOOD IMPRESSION TOMORROW. WILL CONTINUE TO MONITOR.
--- NOTE | 2018-08-25 02:35 | NUR ---
AWAKE AND UP FROM BED OFTEN. C/O DRY MOUTH, STOMACH ACHE, TROUBLE SLEEPING. WATER, PEPTO BISMOUTH, TRAZADONE PROVIDED. PITTING EDEMA NOTED TO LOWER EXTREMITIES. WILL CONTINUE TO MONITOR Q 12 MINUTES FOR PATIENT SAFETY.
--- NOTE | 2018-08-25 06:08 | NUR ---
DID NOT SLEEP AT ALL. ALTERNATELY LAID IN BED A FEW MINUTES, THEN SAT UP IN A CHAIR IN BEDROOM, THEN AMBULATED TO THE DAY ROOM AND SAT AT A TABLE AND CHAIR IN THE DAY ROOM. BEDDING CHANGED AFTER HE WET HIS BED TRYING TO USE A URINAL.
[2018-08-25 06:11] VITALS: BP 100/71
[2018-08-25 07:51] VITALS: BP 98/72
--- NOTE | 2018-08-25 11:05 | NUR ---
WOUND CONSULT; CONSULTED FOR A POSSIBLE STAGE 1 PRESSURE ULCER TO THE BUTTOCK. UPON ASSESSMENT I SAW ERYTHEMA/ESCORIATION LIKEY RELATED TO INCONTINENCE WITH PERIRECTAL INVOLVEMENT. THE AREA(S) WERE BLANCHABLE BUT RAPID. RECOMMENDATIONS FOR NOW USE ZGUARD DAILY/PRN AND FREQUENT POSITION CHANGES. DISCUSSED WITH STAFF
--- NOTE | 2018-08-25 16:17 | NUR ---
Pt was accepted [facility]. SW will follow-up with the sister, and mr. Salinas concerning d/c.
--- NOTE | 2018-08-25 16:27 | NUR ---
RANI called spoke with Brad concerning pt been accepted into NF. Brad mention that he will reach out to me on tomorrow, August 26, 2018 to obtain information concerning the NF. Rani called in spoke with Skyla the pt sister concerning placement.
[2018-08-25 20:16] VITALS: BP 115/85
[2018-08-26 07:30] VITALS: BP 104/79
--- NOTE | 2018-08-26 11:45 | NUR ---
Nutrition: pt seen due to pressure wound risk. 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 Wounds on bilateral buttocks per wound care is excoriation possibly related to incontinence. Good po intake is documented, 100% most meals. Pt reported pt asking for "energy drink". Spoke with pt who was very sleepy at this time but nodded yes to offer of ensure. Will send one daily. Unable to obtain weight hx. Per [email or web address] 167-172# past 2 weeks, no other available hx. Consider low risk at present.
[2018-08-26 12:12] VITALS: BP 104/79
--- NOTE | 2018-08-26 12:28 | NUR ---
ASSUMED CARE AT 0700 THIS MORNING. HE WAS SITTING ON THE UNIT ATTACHED TO THE WALL OXYGEN. STAFF GOT HIM A OXYGEN TANK SO HE COULD MOVE TO A TABLE FOR BREAKFAST. HIS VITAL SIGNS THIS MORNING WAS B/P 104/79, P54, R 14, T98.0, AND OXYGENATION 86% ON 2 LPM PER NASAL CANNULA. HE WAS BUMPED TO 3 LPM OXYGEN AND HIS OXYGENATION INCREASED TO 93%. AFTER BREAKFAST, HE C/O SHORTNESS OF AIR. DR. LÓPEZ NOTIFIED OF THIS. HE WAS TAKEN TO HIS ROOM AND LAYED DOWN WITH THE HOB INCREASED TO ABOUT 30%. HIS OXYGENATION WAS THEN 93%. HE WAS GIVEN SUBLINGUAL MORPHINE PER VERBAL ORDER (AND IT IS WRITTEN ON HIS MAR). AFTER ABOUT 5 MINUTES HE REPORTED THIS WORKED WELL FOR HIM. HE RESTED FOR ABOUT AN HOUR THEN GOT UP IN HIS W/C AND WENT ONTO THE UNIT. HE STATES HE FELT BETTER.
--- NOTE | 2018-08-26 16:14 | NUR ---
LALY sent a referral to [facility] and [facility]. SW recieved notice that pt was not accepted. LALY sent a referral to [facility]. LLAY will follow-up with Ms. Pillai to see if pt can be evaluated with admission. LALY will follow-up with pt on tomorrow, August 27, 2018.
[2018-08-26 19:32] VITALS: BP 91/64
--- NOTE | 2018-08-26 21:28 | NUR ---
ASSUMED CARE OF THE PT AT 1930. ALERT ET ORIENTED X 3. MAKES NEEDS KNOWN. WALKS WITH A STEADY GAIT. HEART RATE REGULAR. LUNGS DIM BILATERALLY, RESP., EVEN, AND UNLABORED. REMAINS ON AT 3 L PER NASAL CANNULA. THE PT WENT TO BED FOR A LITTLE WHILE THAN GOT UP TO THE DAYROOM. DENIES ANXIETY AND DEPRESSION, SI/HI AND A/V HALLUNICATIONS. REMAINS ON 12 MINUTE CHECKS FOR HIS SAFETY.
--- NOTE | 2018-08-27 01:20 | NUR ---
WALKER INTO THE PT'S ROOM, HE WAS ASKING FOR A DRINK OF WATER, WHICH WAS GIVEN TO HIM, HE WAS GRIMACING HIS FACE, THIS BOOK SEWER MEDICATED THE PT WITH 10MG OF MORPHINE SULFATE, SL.
--- NOTE | 2018-08-27 02:16 | NUR ---
WHEN WALKING PAST THE PT'S ROOM, IT WAS NOTICED THAT HE WAS SITTING ON THE SIDE OF THE BED, WITH THE LIGHTS ON. 02 ON AT 3L PER N.C.
[2018-08-27 09:03] VITALS: BP 99/75
[2018-08-27 09:08] VITALS: BP 99/75
--- NOTE | 2018-08-27 09:32 | NUR ---
PATIENT UP ON UNIT AT CHANGE OF SHIFT. SITTING IN DINING AREA ON OXYGEN NC AT 3 L. PATIENT SLUMPED OVER AND SLEEPING. AWOKEN FOR BREAKFAST. ADMINISTERED MEDICATIONS AND TOLERATED WELL. STAFF ATTEMPTED TO ASSIST BUT STATED PREFERRED TO HANDLE OWN ADL AND TAKING HIS MEDICATIONS. PATIENT STATED SLEPT WELL, DENIED ANY THOUGHTS OF S/I - MAKES NEEDS KNOWN - UTILIZED BATHROOM WITH ASSISTANCE FROM STAFF. PATIENT REMAINED IN DINING AREA. COMPLETED 50% OF MEAL - WAS DISATISFIED WITH FOOD STATING IT WAS SOMEWHAT COLD - OFFERED TO HEAT BUT REFUSED AT THIS TIME. PARTICIPATED IN ACTIVITY GROUP - QUIET - AGREEABLE AND CALM. ASSESSED FOR PAIN AND STATED NONE AT THIS TIME - OFTEN IN LOWER BACK WHEN IT ACHES. CURRENTLY NAPPING IN CHAIR IN DINING AREA.
[2018-08-27 11:29] LABS: PROTIME 31.6 Seconds (9.3-11.4)
--- NOTE | 2018-08-27 12:55 | NUR ---
LALY sent the medication list to [facility] jose Carlson. Nuria, mention that the pt will be accepted into the NF on August 30, 2018.
--- NOTE | 2018-08-27 15:39 | NUR ---
Date of Admission: 08/21/18 Date of Activity Therapy Assessment: 08/24/18 Activity Goal: Manage anxiety symptoms Initial Goal: 1 Group activity/day Weekly progress towards goal: On track Group participation level: Moderate Behaviors observed: Patient's participation is moderate and dependent upon how he is feeling presently. Patient appears drowsy and lethargic compared to previous stay. Plan: No change towards goal
--- NOTE | 2018-08-27 16:43 | HC ---
[facility] [place] [address] [place] [address] CONSULTATION Name: WAYNE WRIGHT Room #: 526B-B ADM IN M.R.#: [id number] Admission: 08/21/18 ������������������ Attend Phys: Polo Randall DO Discharge: ������������������ Date of : 51 Report #: [id number] THIS REPORT FOR: //name// CC: Polo Manzanareslewis Matthewshawn DATE OF SERVICE: 08/23/2018 TYPE OF REPORT: Pulmonary consultation. PRIMARY CARE PHYSICIAN: Dick Esparza M.D. or Wilton Nuñez M.D. REASON FOR REFERRAL: Exercising with hypoxia. HISTORY OF PRESENT ILLNESS: The patient is a 63-year-old white male who is currently inpatient at the Behavioral Health Unit. Pulmonary consultation was requested due to exercise-induced hypoxia. The patient has a significant medical history. He has severe ischemic cardiomyopathy with ejection fraction approximately 10%. Chest x-ray revealed marked cardiomegaly. He has prior ICD implantation along with hypertension, hyperlipidemia, HIV infection, atrial fibrillation, schizophrenia along with chronic kidney disease. According to the records, he also has a history of hepatitis C. The patient states that he has smoked for many years but quit a few years ago. He has never been told that he had had chronic lung disease. Otherwise, he denies any chest pain, productive cough, night sweats or chills. Denies any sore throat. He denies any occupational exposure to industrial dust or toxins. PAST MEDICAL HISTORY: As mentioned above including history of hepatitis C, suicidal ideation, which resulted in admission to the Behavioral Health Unit. PAST SURGICAL HISTORY: Status post herniorrhaphy, angioplasty, stent placement and status post ICD placement. ALLERGIES: None to medications. MEDICATIONS: His current medications list reviewed, this include: Aspirin, Lipitor, Wellbutrin, Plavix, Lanoxin, Colace, Pepcid, fenofibrate or Proscar, Prozac, Lasix, metoprolol, nitroglycerin, potassium supplements, Abacavir 600 mg once a day and melatonin. [address] [address] CONSULTATION Name: ADRIANAWAYNE Koo Room #: 526B-B [facility] IN .R.#: [id number] Admission: 08/21/18 ������������������ Attend Phys: Polo Randall DO Discharge: ������������������ Date of : 51 Report #: [id number] FAMILY HISTORY: Noncontributory. SOCIAL HISTORY: The patient had living in [place] most of his life. He is here to be close to his family, which I think is the sister. Otherwise, denies any alcohol use. Denies any illicit drug use. REVIEW OF SYSTEMS: As mentioned above, otherwise 10-point system review negative. PHYSICAL EXAMINATION: GENERAL: He is awake and alert, in no apparent distress. VITAL SIGNS: Temperature is 98.4 degrees Fahrenheit, pulse is 70, respiratory rate is 20, blood pressure 110/84 mmHg and saturation 100%. HEENT: Normocephalic and atraumatic. NECK: Supple, without any lymphadenopathy or thyromegaly. CHEST: Breath sounds are good with a few scattered crackles in the bases. No wheezes. CARDIOVASCULAR: Normal S1 and S2. No murmurs or gallop. There is no JVD. There is no carotid bruit. Pulses are 2+/4+ bilaterally. No obvious murmurs or gallop. GENITOURINARY: Deferred. RECTAL: Deferred. EXTREMITIES: There is no edema, cyanosis or clubbing. RADIOLOGICAL DATA: Portable chest x-ray shows marked cardiomegaly with possible left lower lobe atelectasis, otherwise pulmonary vascular markings are increased. No pleural effusion seen. Exercise and oximetry study revealed desaturation with a low saturation around 87%. Electrolytes are normal except for creatinine of 1.7. WBC 3700, hemoglobin 12.8 and platelets are normal. INR is 1.9. IMPRESSION: 1. Exercise-induced hypoxia in this 63-year-old white male with severe ischemic cardiomyopathy along with history of human immunodeficiency virus infection. The patient has smoked remotely but quit many years ago. Clinically, appears to be relatively asymptomatic. Etiology of the patient's exercise-induced hypoxia is likely related to ventilation perfusion mismatch along with atelectasis. He does not appear to have acute pulmonary infectious process. Chronic obstructive pulmonary disease is felt to be less likely. Again, acute infection or opportunistic infection appears to be unlikely. Pulmonary embolus is also felt to be less likely given ongoing anticoagulation. 2. Ischemic cardiomyopathy, severe, ejection fraction 10%. 3. Coronary artery disease. [address] [address] CONSULTATION Name: WAYNE WRIGHT Room #: 526B-B ADM IN M.R.#: [id number] Admission: 08/21/18 ������������������ Attend Phys: Polo Randall, Discharge: ������������������ Date of : 51 Report #: [id number] 4. Atrial fibrillation. 5. Human immunodeficiency virus infection. 6. History of hepatitis C. 7. Hypertension. 8. Schizophrenia along with suicidal ideation. RECOMMENDATIONS: We would recommend O2 as needed to keep saturation 90%, hopefully with improvement in his clinical status. The patient's saturation should improve over time. Incentive spirometry will be recommended. Once stable as an outpatient, baseline pulmonary functions will be helpful. With his severe cardiomyopathy, we would also consider an overnight oximetry study or perhaps even a sleep study done as an outpatient. Thank you for this consultation. ��������������������������������������������� <ELECTRONICALLY SIGNED> ���������������������������������������� By: Joselito Marie MD ��������������������������������������������� 08/27/18 1643 1810 0033 Joselito Marie MD /nt
[2018-08-27 19:41] VITALS: BP 110/89
--- NOTE | 2018-08-27 23:15 | NUR ---
Care assumed of patient at 1900: Patient sitting in w/c watching TV at start of shift. Patient alert and oriented x4. Patient presents with blunted affect. Patient easily short of breath during conversation. O2 3L/min per NC continuously. Patient pleasant and cooperative. Patient anxious and restless at times. Patient reported pain rated 8/10 generalized. Patient also reported that he is feeling anxious and feels like his "insides are shaky". Assisted patient re-position in his w/c. Patient provided PRN dose of Morphine and Seroquel PO at 1943. Patient reported that he felt better and reported pain 3/10 at follow up. Patient took medications whole without difficulty. Patient reports that he became anxious with another peer while he was being evaluated by [facility] in [place], [place]. He stated that he had hollered at another peer out of agitation. He is afraid that it may jeopardize his discharge on Thursday. Patient states that his goal is to "get better". Patient denies SI/HI/AH/VH. No delusional or paranoia behaviors observed. Patient was able to lay in bed and rest after medications provided for approximately 2 hours. Patient is now up in w/c in the day room. Stating he is having difficulty breathing and feeling anxious again. Education completed that medications can be provided again at 2343. Patient states that he will sit up for a little bit and see if that helps his anxiety and pain.
[2018-08-28 06:48] LABS: HEMATOCRIT 37.3 % (42.0-52.0); HEMOGLOBIN 11.6 gm/dL (14.0-18.0); MCH 25.3 pg (26.0-34.0); MCV 81.6 fL (80.0-100.0); RBC 4.57 mil/uL (4.50-6.00); RDW 19.6 % (10.5-14.5); WBC 4.4 thou/uL (4.0-11.0)
[2018-08-28 06:57] LABS: CALCIUM 9.1 mg/dL (8.5-10.1); CREATININE 1.7 mg/dL (0.7-1.3); MAGNESIUM 1.8 mg/dL (1.8-2.4); POTASSIUM 4.4 mmol/L (3.5-5.1)
[2018-08-28 07:34] VITALS: BP 120/97
--- NOTE | 2018-08-28 16:31 | NUR ---
ORQUIDEA DROWSY THIS AM-REQUIRED ASSIST OF TWO STAFF TO GET INTO WHEELCHAIR AND COMPLETE AM ADLS. UNABLE TO EAT BREAKFAST OR TAKE AM MEDS D/T SEDATION-SIVA ON UNIT ON NOTIFIED OF INABILITY TO GIVE AM MEDS UNTIL APPROX 1030. WHEN AWAKE IS ANXIOUS STATES HE FEELS "CONFUSED AND SCARED" DENIES C/O PAIN AND DISCOMFORT-JUST FEELING"SCARED" [id number] GIVEN PO PRN AT 1000 AND REPEATED AT 1530 WITH NOTED GOOD RESULTS. TAKES PO FLUIDS WITH MUCH ENCOURAGEMENT WHEN AWAKE ENOUGH. WEARING 02 2-3 LITERS PER NC TO MAINTAIN SATS GREATER THAN 92 PERCENT PER RT. HEARTRATE RANGING FROM 72-TO 48-2-3 EPISODES OF BRADYCARDIA THIS PM WHILE RESTING IN BED
[2018-08-28 19:15] VITALS: BP 108/74
--- NOTE | 2018-08-29 05:16 | NUR ---
Care assumed of patient at 1900: Patient sleeping in bed at start of shift. Patient has been assisted to the bathroom approximately every 2 hours. Patient has had 2 incontinent episodes of bladder. Patient has otherwise been sleeping this shift. Patient took scheduled HS meds whole without difficulty. Continues to wear O2 3L/min per NC continuous. Patient will often take off O2 when going to the bathroom and needs re-direction and changed over to O2 portable tank. Patient irritable during assessment and drowsy. Denies pain or discomfort. Flat affect. Denies SI/HI/AH/VH. No delusional or paranoia behaviors observed. Patient declined HS snack. Fluids have been encouraged throughout the night.
[2018-08-29 07:00] VITALS: BP 105/74
[2018-08-29 13:10] VITALS: BP 120/54
--- NOTE | 2018-08-29 15:15 | NUR ---
Savannah from [facility] called and requested the referral packet for this pt. [phone] (f) [phone]. SW completed this task.
[2018-08-29 19:35] VITALS: BP 101/74
--- NOTE | 2018-08-29 23:59 | NUR ---
Care assumed of patient at 1900: Patient sitting in w/c in day room at start of shift. Patient alert and oriented to person. Presents with flat affect. Irritable with staff at times. Patient needs one step simple directions to complete a task. Patient becomes frustrated when he has difficulty comprehending and retaining information. Patient denies pain or discomfort. On O2 3L/min per NC continuously. Patient took medications whole without difficulty. Patient asked why he is taking "so many pills". Patient educated on medication administered and purpose. Patient states that he is "not scared to ". Patient has poor balance and unsteady gait. Requires mod assist with ADLs due to fall risk. Patient declined HS snack but did drink 120cc water. When patient irritable, he was re-directed that staff is here to help him and to be respectful. Patient easily re-directed and apologetic. Patient assisted to bed and has been resting quietly.
[2018-08-30 06:35] LABS: INR 3.7; PROTIME 38.5 Seconds (9.3-11.4)
[2018-08-30 08:00] VITALS: BP 94/67
--- NOTE | 2018-08-30 11:52 | NUR ---
ASSUMED PATIENT CARE AT 0700. PATIENT ASSISTED UP TO DR FOR BREAKFAST, ATE ONLY A FEW BITES. COMPLIANT WITH MEDICATIONS, GIVEN LATE R/T POC. DROWSY, NAPPING WHILE SITTING UP IN W/C. DOES RESPOND TO VERBAL CUES. O2 RECHECKED ATG 11:45, 100%
--- NOTE | 2018-08-30 12:08 | NUR ---
LALY sent a referral to [facility], [facility], and [facility]. LALY will follow-up with pt admission to NF's. LALY spoke with Rachele Whitaker pt [facility] concerning pt not being accepted into the NF due to mental and physical condition.
--- NOTE | 2018-08-30 12:10 | NUR ---
LALY spoke with Savannah garcia [facility] concerning pt not accepted into the NF due to the facility not being capable to care for his mental and medical needs. Savannah explained that her regional nurse feels that he will not be appropriate for there [place] due to the levity of his health. LALY will follow-up with DPOA concerning the NF disposition.
--- NOTE | 2018-08-30 15:12 | NUR ---
WOUND CARE FOLLOW UP; ERYTHEMA HAS IMPROVED WITH ZGUARD. WE WILL CONTINUE WOTH THIS. THERE IS NO NEED TO FOLLOW THIS PATIENT AT THIS TIME RECONSULT IF NEEDED. DISCUSSED WITH STAFF
--- NOTE | 2018-08-30 16:08 | NUR ---
LALY spoke with Festus from [facility] concerning pt been evaluated for admission into the NF. Festus mention that she will evaluate on August 31, 2018 at 10:00am.
[2018-08-30 20:18] VITALS: BP 104/76
--- NOTE | 2018-08-31 00:53 | NUR ---
Care assumed of patient at 1900: Patient resting quietly in bed at start of shift. Patient drank 120cc of water with his medications this PM. Patient declined supplement and snack. Patient took medication whole without difficulty. Patient did decline to take scheduled Colace and Atorvastatin. Patient denies pain or discomfort. Alert and oriented x person. Forgetful, confused. Needs one step simple directions to complete a task. O2 94% on 3L O2 per NC continuous. Patient flat, difficulty making eye contact, drowsy. Patient more alert and arousable during PM assessment than previous night. Patient assisted to the bathroom. Continent and incontinent of bladder episodes this shift. Denies any complaints or concerns at this time.
[2018-08-31 08:00] VITALS: BP 89/64
--- NOTE | 2018-08-31 17:34 | NUR ---
HAS BEEN IN ROOM IN BED MAJORITY OF SHIFT-OUT BRIEFLY AT MEALS BUT QUICKLY BECOMES RESTLESS AND BEGINS TO YELL TO GO TO BED. MORPHINE SULFATE 5 MG SL PRN AT 1330 FOR CALLING OUT/MOANING. DYSPHORIC,IRRITABLE MOOD- DELUSIONAL AND SUSPICIOUS OF STAFF VERBALIZING STAFF IS TRYING TO KILL HIM OR PUNISH HIM. INITALLY REFUSED AM MEDICATIONS STATING "NO I AM NOT TAKING ANY OF THAT" REFUSES TO HOLD CUP OR ASSIST WITH FEEDING OR AD;L.S. INCONT OF URINE X 2 AND PERICARE PROVIDED. BP AT 0900 89/64 P 55 R12- RECHECKED AT 1100 WHILE AWAKE AND SITTING IN DINING ROOM AND IS 118/68- P 62 R 14 WEARING 02 3 LITER VIA NC BUT IS RESISITVE WITH LEAVING ON-ATTEMPTED TO GET UP OUT OF BED ON OWN X2 TRIGGERING BED ALARM -GAIT UNSTEADY. DID EVENTUALLY TAKE 0900 MEDS AT APPROX 1100
[2018-08-31 19:46] VITALS: BP 103/73
--- NOTE | 2018-08-31 23:07 | NUR ---
ASSUMED CARE OF THE PT AT 191 PM. THE PT WAS MOANING IN PAIN, MEDICATED WITH MORPHINE SULFATE 5MG SL PER PHYSICIAN'S REQUEST. HEART RATE REGULAR. LUNGS DIMINSHED BILATERALLY, WEARS 02 ON AT 3L PER NC. DENIES SI/HI, ANXIETY AND DEPRESSION. DENIES A/V HALLUNCIATIONS. REMAINS ON 12 MINUTE CHECKS.
--- NOTE | 2018-09-01 06:06 | NUR ---
the pt slept 9 hours last night.
[2018-09-01 08:28] VITALS: BP 119/79
--- NOTE | 2018-09-01 11:39 | NUR ---
Nutrition: pt seen per followup. Continues on [facility] unit with major neurocognitive disorder, HIV. Bilateral buttock excoriation improved per wound care. Intake is sporadic from refusal to 100% per nsg documentation. Pt reports good appetite and was eagerly eating meal during visit. Likes the ensure. Will increase to BID due to suboptimal intake records. Recent weights stable. End stage cardiomyopathy. Per team meeting plan hospice eval as continues to decline-increasing 02 requirements. Difficulty with placement. Consider low risk with interventions in place.
--- NOTE | 2018-09-01 12:05 | NUR ---
LALY sent a referral to hospice. LALY will follow-up on tomorrow.
--- NOTE | 2018-09-01 17:21 | NUR ---
FOUND LYING ON FLOOR NEXT TO BED WITH ARMS FOLDED UNDER HEAD-MOANING SOFTLY-HAD REMOVED O2. WHEN QUESTIONED STATES "THE MONSTER FELL ON ME" UNABLE TO TELL STAFF IF HE FELL, HURT SELF,ETC. WHEN ASKED ABOUT PAIN STATES "I'VE BEEN HAVING PAIN ALL DAY YOU KNOW THAT WHAT DID I DO TO YOU" HEAD TO TOE SKIN CHECK COMPLETED BY THIS RN-NO NOTED BRUISING,LACERATIONS,ABRASIONS. ABLE TO MOVE ALL EXTREMETIES WITHOUT PAIN ALTHOUGH IS VERY RESISTIVE WITH ASSESSMENT AND REFUSING TO FOLLOW VERBAL COMMANDS YELLING "WHY ARE YOU HURTING ME,WHY ARE YOU TORTURING ME"VS 122/75-52-R-- SAT 88 PERCENT. ASSISTED BACK TO BED- PLACED ON O2-MD AT BEDSIDE-NO NEW ORDERS RECEIVED.
[2018-09-01 19:26] VITALS: BP 83/58
--- NOTE | 2018-09-02 01:09 | NUR ---
ASSUMED CARE @ 1900, IN BED EYES CLOSED, RESPONDS TO VOICE. COOPERATED WITH ASSESSMENT, CONFUSED, STATED I DONT KNOW WHAT IM SUPPOSED TO DO OR WHERE I AM. ASSURED THAT HE IS LYING IN BED AND THAT IS OKAY, HE REQUESTED TO GO TO THE RESTROOM, TRANSFERRED VIA W/C, ABLE TO BEAR WEIGHT AND PIVOT. INCONTINENT IN BRIEF, AND CONTINENT IN THE TOILET OF BLADDER. RETURNED TO BED, OXYGEN REESTABLISHED @ 3 L VIA N/C. RESPIRATIONS SHALLOW @ 0030, WILL CONTINUE TO MONITOR @ Q 12 MINUTES FOR PT SAFETY AND WELL BEING.
--- NOTE | 2018-09-02 06:47 | NUR ---
SLEPT 11.8 HOURS TOTAL.
--- NOTE | 2018-09-02 17:12 | NUR ---
Sw sent update to [facility] per request. Sw also spoke with pt's sister and provided an update. Later [facility] denied the admission becasue he is not using IV for pain. The CUSTOMER SUPPORT SPECIALIST for the hospice stated that she would relay this informtaion to the sister, and Hospice House. Hopefully [facility] will accept pt so her can d/c there tomorrow. This was reported to UR and nursing staff.
--- NOTE | 2018-09-02 18:19 | NUR ---
PATIENT HAS BEEN LETHARGIC TODAY. SLEPT THROUGH BREAKFAST AND MORNING MEDICAITONS NOT GIVEN. AWOKE AT 0930 COMPLAINED OF CHEST PAIN AND BACK AND GIVEN FIRST 5 MG. DOSE OF MORPHINE FOR DISCOMFORT. APPEARS TO EASE PATIENT PAIN FOR ABOUT THREE HOURS. STAFF ASSISTED TO WHEELCHAIR PRIOR TO LUNCH. PROCEEDED TO PULL ON OXYGEN TUBING AND BECAME AGITATED WHEN REDIRECTED. DOZED OFF IN CHAIR FOR SHORT TIME. RESTLESS WANTING TO GET UP - BECOMES IRRITATED WHEN STAFF ATTEMPTS TO RESEAT. PATIENT HAD HOSPICE HOUSE COME TO EVALUATE - NURSE PRACTIONER UNABLE TO ADMIT - PROTOCOL REQUIRED IV SYMPTOMS MEDICATIONS TO BE PAID BY MEDICARE. SPOKE WITH PATIENT AND WAS ALERT WHEN ADDRESSED IN ROOM. KNEW YEAR AND WHO WAS PRESIDENT. STATED PAIN MEDICATION ABDIFATAHE MILLYHEN GIVEN ORALLY. PATIENT HAS BEEN IN BED - ESCORTED TO DINING ASH FOR DINNER BUT ATE VERY LITTLE. APPEARS VERY SEDATED. REMAINS SEATED AT TABLE HUNCHED OVER - TOOK LASIX AT 1700 WITHOUT HESITATION.
--- NOTE | 2018-09-02 21:30 | NUR ---
ASSUMED CARE OF THE PT AT 1930. ALERT ET ORIENTED X 2, MAKES NEEDS KNOWN. THE PT WAS SITTING IN THE DAYROOM WHEN THIS LEASE ANALYST CAME ON DUTY. THE PT HAS A PACEMAKER TO THE LEFT SIDE OF HIS CHEST. HEART RATE REGULAR. LUNGS CLEAR BILATERALLY, RESP., EVEN, AND UNLABORED. +BS HEARD IN ALL 4 QUADRANTS. ABD SOFT ET NONTTENDOR. DENIES PAIN AT THIS TIME. TOOK HIS SLEEPING PILL WITHOUT ANY DIFFICULY. REMAINS ON 12 MINUTE CHECKS FOR HIS SAFETY.
--- NOTE | 2018-09-03 09:27 | NUR ---
SW called [facility] they denied the referal due to lack of payor source and they do not have a bed.
--- NOTE | 2018-09-03 09:39 | NUR ---
PATIENT HAS BEEN IN BED SLEEPING ALL MORNING. APPROACHED WITH AM MEDICATIONS AND TOLERATED WELL. WAS NOT HUNGRY FOR BREAKFAST BUT WANTED TO GET UP FOR LUNCH. RESPONSIVE TO QUESTIONS. BREATHING UNLABORED - REMAINS ON OXYGEN AND COMPLIANT. STATED NO PAIN CURRENTLY WHEN ASSESSED. PATIENT VITALS STABLE THIS MORNING. 94/62 - HEART RATE AT 60 - TEMP OF 98.0 WITH OXYGEN AT 99 ON 3L NC. REMAINED ASLEEP FOR MORNING GROUP.
--- NOTE | 2018-09-03 12:52 | NUR ---
Sw called hospice house and pt was accpeted and will get the next available bed. Pt might be re evaluated today
--- NOTE | 2018-09-03 14:21 | NUR ---
LALY spoke with [facility] and they will accept this pt as he has the private funding. He will d/c there Thursday09/06/18 before lunch. They have set up a stretcher van with O2. During this weekend [facility] will come see the pt with the family present. the DNR will be signed and hospice will be intiated at the retirement. Sw reported this to nursing
--- NOTE | 2018-09-03 14:59 | NUR ---
Mr santiago and Jim barber visited with pt for some signatures.
--- NOTE | 2018-09-03 15:02 | NUR ---
[facility] called and denied this pt to their hospice house. LALY called and spoke with Skyla and she will be following up with Mr Salinas and try to admission at the senior care.
--- NOTE | 2018-09-03 15:40 | NUR ---
RANI spoke with [facility] [phone] and they will be meeting with the family this weekend. Rani reported this to nursing and called avtar to update her
--- NOTE | 2018-09-03 17:37 | NUR ---
PATIENT HAD BEEN MUCH MORE ALERT THIS EVENING. UP AND ODWN - FROM HIS ROOM TO DINING AREA. PATIENT REMAINS ON OXYGEN. NOT EATING BUT HAS BEEN ACCEPTING FLUIDS. STANDS FOR SHORT PERIODS OF TIME BUT HIGH FALL RISK AND UNSTEADY - TIRING EASILY. PATIENT ALERT AND WAS ABLE TO MEET WITH FINANCIAL PERSONNEL AND SIGN AND DISCUSS HIS BILLS NEEDING TO BE PAID. REFUSED DINNER AND LASIX OFFERED AT 1700. HAS BECOME INCREASINGLY IRRITATED - THROWING HIS WATER AT STAFF ATTEMPTING TO HELP HIM. CURRENTLY IN ROOM IN BED.
[2018-09-03 19:38] VITALS: BP 96/70
[2018-09-03 23:19] VITALS: BP 96/70
--- NOTE | 2018-09-04 02:52 | NUR ---
THE PT WAS CRYING AND CALLING OUT, "HELP ME! HELP ME!" THIS RN MEDICATED THE PT WITH MORPHINE SULFATE 10 MG SL ORDERED.
--- NOTE | 2018-09-04 03:40 | NUR ---
Patient has been awake reporting pain. Hollering out. Declining wanting to get up. Incontinent of bladder. Nika care provided and changed linens. Patient reported pain rated 10/10 generalized. Administered PRN Morphine Sulfate. After 1 hour, not effective. Patient continues to yell out. Stating he is no longer in pain. Patient attention seeking. Hollering out in different voices. Labile. Angry, then smiling and laughing. Patient refusing to wear O2 at this time. Patient removing clothing. Stating he is cold then stating he is hot. Re-positioning not effective. Patient provided PRN dose of PO Seroquel. Given applesauce snack.
--- NOTE | 2018-09-04 09:39 | NUR ---
ASSUMED PATIENT CARE AT 0700. PATIENT UP WITH TIMES ONE ASSIST TO DR FOR BREAKFAST. PATIENT ATE ONLY A FEW BITES OF BREAKFAST, PLUS SMALL AMOUNT OF ENSURE. ACCIDENTALLY SPILLED MOST OF ENSURE. PATIENT VERY CONFUSED, SAYING NON-SENSICAL STATEMENTS WHILE AT TABLE. REFUSED A.M. MEDICATIONS, BECAME VERY AGITATED AND ANXIOUS. NEW ORDER FOR ZYPREXA IM 2.5 MG PRN Q 6 HOURS. IM OF ZYPREXA ADMINISTERED AT 0932, WELL 10 MG OF MORPHINE AT THAT TIME. PATIENT IN BED AT THIS TIME.
--- NOTE | 2018-09-04 12:53 | NUR ---
Date of Admission: 08/21/18 Date of Activity Therapy Assessment: 08/24/2018 Activity Goal: 1 group per day Initial Goal: 1 Group per day Weekly progress towards goal: Did not achieve Group participation level: Declining, Passive Behaviors observed: Will sit in group, but does not participate. Sleeping often Plan: No change towards goal
--- NOTE | 2018-09-04 13:40 | NUR ---
AT 12:30 PM, PATIENT OBSERVED MOANING, SAYING "HELP ME." NURSE ADMINISTERED MORPHINE 10 SL AT THAT TIME FOR PAIN.
--- NOTE | 2018-09-04 16:25 | NUR ---
PATIENT REFUSED 1400 FUROSEMIDE.
[2018-09-04 17:23] VITALS: BP 88/65
--- NOTE | 2018-09-05 04:07 | NUR ---
PT IN BED AT [facility] OF [facility]. CONFUSED AND INCONTINENT. TOOK HS MEDS WITH ENCOURAGMENT. UP TO BATHROOM X2 DURING THE NIGHT WITH POSITIVE RESULTS. RAMBLING MOSTLY INCOHERANT SPEECH. FEET AND ANKLES SWOLLEN AND RENETTA COLORED. C/O THE ITCHING AT TIMES. WEAK AND UNSTEADY WALKING TO RESTROOM, BUT DOES WELL WITH ASSIST.
[2018-09-05 09:40] VITALS: BP 101/72
[2018-09-05 10:42] VITALS: BP 101/72
--- NOTE | 2018-09-05 10:53 | NUR ---
ASSUMED CARE AT 0700 THIS MORNING. PT. IN HIS W/C ON THE UNIT. HE IS SITTING QUIETLY WITHOUT COMMENT. ATE ON THE UNIT, WITH ASSISTANCE OF STAFF. TOOK MEDS WITHOUT PROBLEMS. SAT ON THE PERIPHERY OF THE GROUP BUT DID NOT PARICIPATE.
--- NOTE | 2018-09-05 14:48 | NUR ---
LALY sent updates to [facility] [phone]
--- NOTE | 2018-09-05 19:27 | NUR ---
ASSUMED CARE @ 1900 ON 09/05/18. IN BED RESPIRATIONS EVEN AND UNLABRED SNORING NOTED ON INSPIRATION, OXYGEN @ 3 L VIA N/C.
[2018-09-05 19:55] VITALS: BP 94/67
--- NOTE | 2018-09-06 01:48 | NUR ---
TOOK HS MEDS IN APPLESAUCE, REQUESTED A PRUNE JUICE FOR CONSTIPATION AND REPORTS HE LIKED THE TASTE OF IT. SLEEPING UNTIL 01:30, THEN AWAKE AND CRIED OUT, REPORTING A BAD DREAM OF BEING IN A CAR WITHOUT BREAKS. SEROQUEL GIVEN FOR ANXIETY AND MORPHINE SULFATE 10 MG GIVEN FOR PAIN. LISTENED TO HIS DREAM AND THEN REASSURED OF HIS SAFETY. WILL CONTINUE TO MONITOR Q 12 MINUTES.
--- NOTE | 2018-09-06 06:42 | NUR ---
10.6 HOURS SLEEP OVERNIGHT.
[2018-09-06] MEDS ORDERED: ALBUTEROL2.5 MG/0.5 INH (10:53)
[2018-09-06] MEDS ORDERED: MSL20MG/ML SUBLING (10:53)
[2018-09-06] MEDS ORDERED: ACETAMINOPHEN325 M1 PO (10:54)
[2018-09-06] MEDS ORDERED: COLACE 100 MG100 MG PO (10:55)
[2018-09-06] MEDS ORDERED: LASIX 40 MG TAB40 M1 PO (10:55)
[2018-09-06] MEDS ORDERED: PREPARATION H1 EAC5 RECTAL (10:56)
--- NOTE | 2018-09-06 11:04 | NUR ---
LALY spoke with Lexi at [place] [facility] to confirm pt's discharge. Norma was aware and stated she will setup stretcher transportation for Pt beween 11 -1130am. Norma also stated as hospice appt has been set up for pt upon admission to [place] [facility].
--- NOTE | 2018-09-06 12:14 | NUR ---
0700: Report rec from [facility] shift, care assumed. 0800: To via w/c, requires assist x1-2 of staff to transfer, oriented to name and place, denies pain at this time. Feeds self, appetite fair, takes meds whole w/o difficulty. POC for discharge today. 1130: Report called to Tamara @ [facility], pt dc'd via [facility] accomp by professional driver, scripts and dc paperwork sent with pt to facility and faxed also. All personal belongings sent with pt.
--- NOTE | 2018-09-08 09:23 | D ---
[facility] [address] DISCHARGE SUMMARY Name: WAYNE WRIGHT Room #: [address]B-[facility] IN M.R.#: [id number] Admission: 08/21/18 ������������������ Attend Phys: Polo Randall DO Discharge: 09/06/18 ������������������ Date of : 51 Report #: [id number] THIS REPORT FOR: //name// CC: Polo Randall [facility] DATE OF SERVICE: 09/06/2018 ATTENDING PHYSICIAN: Polo Randall DO. TRANSPORTATION MAINTENANCE SUPERVISOR AT THE TIME OF DISCHARGE: Val Sommers MD. 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 DISCHARGE PLAN: He is discharged to the [facility]. The patient will receive hospice care there from [facility]. PROGNOSIS: Poor to terminal. HOSPITAL COURSE: The patient this admission had a fairly stable behavioral course. Efforts were geared towards discharge planning and comfort measures given decline in his physical health. PHYSICAL EXAMINATION: Vital signs at time of discharge are as follows on 2 liters nasal cannula: BP 94/67, pulse 79, respirations 15, O2 sat 96%. Mental Status Exam: This is a well-developed, male appearing stated age, seated in wheelchair. Attention intact. Concentration limited. Speech is normal in rate. Thought process is linear and goal directed. Thought content focused on discharge. Thoughts of appreciation towards hospital staff. No psychomotor agitation or significant retardation. Denied SI or HI. Some helplessness. Denied hopelessness. Denied suicidal or homicidal intent or plan. Memory known to be impaired. Insight fair to limited. Judgment fair to limited. Fund of knowledge well below the premorbid level. Prognosis again is poor to terminal. [facility] [address] [place] [address] DISCHARGE SUMMARY Name: WAYNE WRIGHT Room #: 526B[facility] IN M..#: [id number] Admission: 08/21/18 ������������������ Attend Phys: Polo Randall DO Discharge: 09/06/18 ������������������ Date of : 51 Report #: [id number] DISCHARGE MEDICATIONS: Albuterol 2.5 mL nebulizer q.1h. p.r.n. shortness of breath, Roxanol 10 mg sublingual q.3h. p.r.n. for shortness of air and pain level 7-10, Tylenol 650 mg p.o. q.6h. p.r.n. for pain level 1-5, Lasix 40 mg p.o. b.i.d. with meals for CHF, docusate 100 mg p.o. b.i.d. for bowel motility and he takes Preparation-H suppository rectal four times a day p.r.n. for pain level 1-4, continue famotidine 20 mg p.o. daily for prophylaxis and nitroglycerin 0.4 mg tabs sublingual p.r.n. chest pain, Lexapro 10 mg p.o. daily for depression. ��������������������������������������������� <ELECTRONICALLY SIGNED> ���������������������������������������� By: Polo Randall DO ��������������������������������������������� 09/08/18 0923 [id number] Polo Randall DO /nt
== END 2018-09-06 12:46 | disposition hospice, inpatient (51) | DRG 884 ==
LOC: 2N 10:39 → SBH 18:29
PROVIDERS: Internal Medicine; ADMIT Psychiatry & Neurology Psychiatry
DX: F01.51 Vascular dementia, unspecified severity, with behavioral disturbance (principal); J96.21 Acute and chronic respiratory failure with hypoxia; B20 Human immunodeficiency virus [HIV] disease; I13.0 Hypertensive heart and chronic kidney disease with heart failure and stage 1 through stage 4 chronic kidney disease, or unspecified chronic kidney disease; R45.851 Suicidal ideations; F32.9 Major depressive disorder, single episode, unspecified; I50.9 Heart failure, unspecified; N18.9 Chronic kidney disease, unspecified; I25.10 Atherosclerotic heart disease of native coronary artery without angina pectoris; E78.5 Hyperlipidemia, unspecified; F02.80 Dementia in other diseases classified elsewhere, unspecified severity, without behavioral disturbance, psychotic disturbance, mood disturbance, and anxiety; I25.5 Ischemic cardiomyopathy; F20.9 Schizophrenia, unspecified; B18.2 Chronic viral hepatitis C; I48.2 Chronic atrial fibrillation; Z66 Do not resuscitate; Z51.5 Encounter for palliative care; Z86.19 Personal history of other infectious and parasitic diseases; Z95.5 Presence of coronary angioplasty implant and graft; Z95.810 Presence of automatic (implantable) cardiac defibrillator; Z82.49 Family history of ischemic heart disease and other diseases of the circulatory system; Z84.89 Family history of other specified conditions; Z80.8 Family history of malignant neoplasm of other organs or systems; Z87.891 Personal history of nicotine dependence
CPT/HCPCS: 10880